=== PATIENT | female | born 1955 | race African-American/Black ===

== ENCOUNTER 2018-11-19 09:13 | Day surgery (SDC) | payer BC, MEDICARE, OTHER ==
[2018-11-19] MEDS ORDERED: ONDANSETRON HCL INJ/PF 4 MG/2 ML SDV IV ONE (10:21)
[2018-11-19] MEDS ORDERED: MORPHINE SULFATE 10 MG/ML INJ IV ONE ×2 (10:21→15:20)
--- NOTE | 2018-11-19 10:23 | ER Document Report ---
ED Medical Screen (RME) - General Chief Complaint: Abdominal Pain Stated Complaint: ABDOMINAL PAIN Time Seen by Provider: 11/19/18 10:14 Mode of Arrival: Ambulatory Information source: Patient TRAVEL OUTSIDE OF THE [place] IN LAST 30 DAYS: No - HPI Patient complains to provider of: ABDO PAIN, MASS Notes: 11/19/18 10:22 Patient here with complaints of abdominal pain vomiting and mass near her umbilicus. This started about an hour ago. No fever. Exam No distress, nontoxic. Patient with hernia noted to the right side of her um bilicus. I attempted gentle reduction in triage, the patient did not tolerate this due to pain. Was not able to successfully reduce this in triage. Plan CBC, CMP, lipase, lactic acid, saline lock, CT abdomen pelvis with IV contrast. Patient will require reduction of this hernia. An initial examination was made on the patient as part of the triage process, and it was determined a more comprehensive evaluation was necessary. Initial labs were ordered and patient was transferred to another provider in the ED who assumed care and finished evaluation and plan. - Related Data Allergies/Adverse Reactions: No Known Allergies Allergy (Unverified 11/19/18 09:15) Past Medical History Renal/ Medical History: Denies: Hx Peritoneal Dialysis Past Surgical History: Reports: Hx Appendectomy Physical Exam - Vital signs Vitals: Temp Pulse Resp BP Pulse Ox 97.4 F 55 L 16 153/77 H 98 11/19/18 09:28 11/19/18 09:28 11/19/18 09:28 11/19/18 09:28 11/19/18 09:28 Course - Vital Signs Vital signs: Temp Pulse Resp BP Pulse Ox 97.4 F 55 L 16 153/77 H 98 11/19/18 09:28 11/19/18 09:28 11/19/18 09:28 11/19/18 09:28 11/19/18 09:28
[2018-11-19] MEDS ORDERED: ROCURONIUM BROMIDE INJ 50 MG/5 ML VIAL IV ONE (10:48)
[2018-11-19] MEDS ORDERED: SUCCINYLCHOLINE CHLORIDE INJ 200 MG/10 ML VIAL ONE (10:48)
[2018-11-19 11:29] LABS: ABSOLUTE EOSINOPHILS # (AUTO) 0.2 10^3/uL (0.0-0.6); ABSOLUTE MONOCYTES (AUTO) 0.5 10^3/uL (0.1-1.4); ABSOLUTE NEUT (AUTO) 5.2 10^3/uL (1.7-8.2); BASOPHILS % (AUTO) 0.3 % (0-2); EOSINOPHILS % (AUTO) 2.4 % (0-6); HEMATOCRIT 37.2 % (36.0-47.0); HEMOGLOBIN 12.3 g/dL (12.0-15.5); MEAN CORPUSCULAR HEMOGLOBIN 30.7 pg (27.0-33.4); MEAN CORPUSCULAR HGB CONC 33.1 g/dL (32.0-36.0); MEAN CORPUSCULAR VOLUME 93 fl (80-97); MONOCYTES % (AUTO) 6.8 % (3-13); RED BLOOD COUNT 4.01 10^6/uL (3.72-5.28); RED CELL DISTRIBUTION WIDTH 14.5 % (11.5-14.0); SEGMENTED NEUTROPHILS % (AUTO) 65.5 % (42-78); TOTAL CELLS COUNTED % (AUTO) 100 %
[2018-11-19 11:37] LABS: ALANINE AMINOTRANSFERASE 23 U/L (9-52); ALBUMIN 4.1 g/dL (3.5-5.0); ALKALINE PHOSPHATASE 59 U/L (38-126); ANION GAP 11 (5-19); ASPARTATE AMINO TRANSFERASE 26 U/L (14-36); BILIRUBIN,DIRECT 0.3 mg/dL (0.0-0.4); BILIRUBIN,TOTAL 0.9 mg/dL (0.2-1.3); BLOOD UREA NITROGEN 17 mg/dL (7-20); CALCIUM 9.7 mg/dL (8.4-10.2); CARBON DIOXIDE 28 mmol/L (22-30); CHLORIDE 104 mmol/L (98-107); GLUCOSE 94 mg/dL (75-110); LIPASE 70.8 U/L (23-300); POTASSIUM 4.5 mmol/L (3.6-5.0); SODIUM 142.7 mmol/L (137-145); TOTAL PROTEIN 8.2 g/dL (6.3-8.2)
--- NOTE | 2018-11-19 11:41 | ER Document Report ---
ED General - General Chief Complaint: Abdominal Pain Stated Complaint: ABDOMINAL PAIN Time Seen by Provider: 11/19/18 10:14 Mode of Arrival: Ambulatory TRAVEL OUTSIDE OF THE [place] IN LAST 30 DAYS: No - HPI Notes: Patient is a 63-year-old female no significant past medical history who presents to the emergency department complaining of a worsening bump and pain to her abdomen near her umbilicus. Patient states that she has had a small bump there for a long time, but this morning it is significantly become swollen and painful. Her last bowel movement was this morning as well. She is otherwise able to eat and drink, but did have 3 episodes of emesis this morning. She stil l urinating normally. Denies drug allergies. No other concerns or complaints. Denies any headache, fever, neck pain, URI, sore throat, chest pain, palpitations, syncope, cough, shortness of breath, wheeze, dyspnea, diarrhea, urinary retention, dysuria, hematuria, back pain, or rash. - Related Data Allergies/Adverse Reactions: No Known Allergies Allergy (Verified 11/19/18 10:23) Past Medical History - General Information source: Patient - Social History Smoking Status: Never Smoker Family History: Reviewed & Not Pertinent Patient has suicidal ideation: No Patient has homicidal ideation: No Renal/ Medical History: Denies: Hx Peritoneal Dialysis Past Surgical History: Reports: Hx Appendectomy Review of Systems - Review of Systems -: Yes All other systems reviewed and negative Physical Exam - Vital signs Vitals: Temp Pulse Resp BP Pulse Ox 97.4 F 55 L 16 153/77 H 98 11/19/18 09:28 11/19/18 09:28 11/19/18 09:28 11/19/18 09:28 11/19/18 09:28 - Notes Notes: PHYSICAL EXAMINATION: GENERAL: Well-appearing, well-nourished and in no acute distress. LUNGS: Breath sounds clear to auscultation bilaterally and equal. No wheezes rales or rhonchi. HEART: Regular rate and rhythm without murmurs, rubs, gallops. ABDOMEN: Generally soft. + umbilical hernia noted that is firm and tender to palp. I was unable to reduce on my attempt at this time. No guarding, no rebound. Normal bowel sounds present. No CVA tenderness bilaterally. Musculoskeletal: FROM to passive/active. Strength 5+/5. Extremities: No cyanosis, clubbing, or edema b/l. Peripheral pulses 2+. Capillary refill less than 3 seconds. NEUROLOGICAL: Normal speech, normal gait. PSYCH: Normal mood, normal affect. SKIN: Warm, Dry, normal turgor, no rashes or lesions noted. Course - Re-evaluation Re-evalutation: 11/19/18 12:00 Dr. Kwon was consulted who eval'd the patient. He would like her to remain NPO and perform CT abd/pelv with IV/Oral. 11/19/18 15:[address] shows umbilical hernia w/o obvious strangulation at this time. I called Dr. Kwon but he will be in surgery for the next 45 mins approx. Reviewed case with patient and that Dr. Kwon may want to take her to surgery to reduce the hernia. 11/19/18 16:35 I was able to speak with Dr. Kwon who will eval the patient for incarcerated hernia. 11/19/18 16:42 Dr. Kwon has accepted pt for admit and will take her to the OR for reduction. - Vital Signs Vital signs: Temp Pulse Resp BP Pulse Ox 97.4 F 55 L 16 153/77 H 98 11/19/18 09:28 11/19/18 09:28 11/19/18 09:28 11/19/18 09:28 11/19/18 09:28 - Laboratory Result Diagrams: 11/19/18 10:40 11/19/18 10:40 Laboratory results interpreted by me: 11/19/18 11/19/18 10:40 10:40 RDW 14.5 H Creatinine 0.40 L Discharge - Discharge Clinical Impression: Incarcerated umbilical hernia Condition: Stable Disposition: ADMITTED INPATIENT Admitting Provider: Surgicalist - Dr. Kwon Unit Admitted: Surgical Floor
[2018-11-19 11:46] LABS: PLATELET COUNT 195 10^3/uL (150-450)
[2018-11-19] MEDS ORDERED: METOCLOPRAMIDE HCL INJ/PF 10 MG/2 ML SDV IV ONE (13:42)
--- NOTE | 2018-11-19 15:02 | RADIOLOGY REPORT (SQ) ---
EXAM DESCRIPTION: CT ABD/PELVIS WITH IV ORAL COMPLETED DATE/TIME: 11/19/2018 2:43 pm REASON FOR STUDY: umbilical hernia, pain COMPARISON: None. TECHNIQUE: CT scan of the abdomen and pelvis performed using helical scanning technique with dynamic intravenous contrast injection. No oral contrast. Images reviewed with lung, soft tissue, and bone windows. Reconstructed coronal and sagittal MPR images reviewed. Delayed images for evaluation of the urinary system also acquired. All images stored on PACS. All CT scanners at this facility use dose modulation, iterative reconstruction, and/or weight based d osing when appropriate to reduce radiation dose to as low as reasonably achievable (ALARA). [facility]: Dose Right [facility]: CareDose [facility]: Dose Right [facility]: Teradose 4D [facility]: Golden Reviews CONTRAST TYPE AND DOSE: contrast/concentration: Isovue 350.00 mg/ml; Total Contrast Delivered: 100.0 ml; Total Saline Delivered: 72.0 ml RENAL FUNCTION: BUN 17 creatinine 0.4 RADIATION DOSE: CT Rad equipment meets quality standard of care and radiation dose reduction techniq ues were employed. CTDIvol: 20.7 - 21.1 mGy. DLP: 2124 mGy-cm.. LIMITATIONS: None. FINDINGS: LOWER CHEST: No significant findings. No nodules or infiltrates. LIVER: Normal size. No masses. No dilated ducts. SPLEEN: Normal size. No focal lesions. PANCREAS: No masses. No significant calcifications. No adjacent inflammation or peripancreatic fluid collections. Pancreatic duct not dilated. GALLBLADDER: No identified stones by CT criteria. No inflammatory changes to suggest cholecystitis. ADRENAL GLANDS: No significant masses or asymmetry. RIGHT KIDNEY AND URETER: No solid masses. No significant calcifications. No hydronephrosis or hyd roureter. LEFT KIDNEY AND URETER: No solid masses. No significant calcifications. No hydronephrosis or hydr oureter. AORTA AND VESSELS: No aneurysm. No dissection. There is an IVC filter. RETROPERITONEUM: No retroperitoneal adenopathy, hemorrhage or masses. BOWEL AND PERITONEAL CAVITY: No masses or inflammatory changes. No free fluid or peritoneal masses. There is no evidence of bowel obstruction. See abdominal wall, below. APPENDIX: Surgically absent. PELVIS: The uterus is enlarged and quite heterogeneous. There are calcified and noncalcified fibroid s. ABDOMINAL WALL: There is a 3 cm wide umbilical hernia that contains a loop of bowel that is fluid-zita led but otherwise unremarkable. There is also omental fat within the hernia. BONES: No acute or significant finding. OTHER: No other significant finding. IMPRESSION: 1. Umbilical hernia contains a loop of bowel. There is no evidence of bowel obstructio n. 2. Fibroid uterus. TECHNICAL DOCUMENTATION: JOB ID: [id number] Quality ID # [id number]: Final reports with documentation of one or more dose reduction techniques (e.g., Au tomated exposure control, adjustment of the mA and/or kV according to patient size, use of iterative reconstruction technique) 2010 [employer]- All Rights Reserved Reading location - IP/workstation name: [email or web address]
[2018-11-19] MEDS ORDERED: NORMAL SALINE 1000 ML 1,000 ML IV ONE (15:20)
--- NOTE | 2018-11-19 17:24 | HISTORY AND PHYSICAL E ---
History and Physical NAME: LISA LEWIS : 1955 AGE: 63Y ADMITTED: 11/19/2018 ROOM: ED13 CHIEF COMPLAINT: Abdominal pains. HISTORY OF PRESENT ILLNESS: This is a 63-year-old female who had a previous laparoscopic tubal ligation done 34 years ago. Since her tubal ligation, she noted a small lump, peanut-sized, along the umbilical area. This morning, after she had a bowel movement, she developed severe umbilical pains with more prominence of the hernia and also associated with nausea and vomiting. She went to the ED, where several attempts to reduce the hernia were done which were unsuccessful. She had a CT scan of the abdomen, which showed incarcerated umbilical hernia with omentum and bowel through the hernia. However, there is no evidence of obstruction. The patient is having a considerable amount of pain and that is why it is needed to reduce the hernia and also avoid any strangulation. PAST HISTORY: History of deep venous thrombosis in 2013 on the right leg. She also had a PE. She had a vena cava filter placed. She denies any fever, chills, or dysuria. REVIEW OF SYSTEMS: As in history of present illness. Complaining of severe umbilical pains with a tender lump. Positive vomiting. Had some constipation. No diarrhea. No chest pains, cough, or shortness of breath. Denies fever or chills. FAMILY HISTORY: Positive for diabetes on father's side. SOCIAL HISTORY: Denies smoking. Drinks occasionally. No recreational drug use. ALLERGIES: None known. PHYSICAL EXAMINATION: GENERAL: Well-developed, slightly overweight 63-year-old female, alert and oriented, complaining of umbilical pains. NECK: Supple. No thyromegaly. LUNGS: Clear. HEART: Regular sinus rhythm. ABDOMEN: Soft with very tender prominent herniation of the right paraumbilical area. She has a scar from previous tubal ligation in the lower umbilical area. This is markedly tender and unable to be reduced. Roughly, golf ball size. EXTREMITIES: No edema, no pains, no swelling. IMPRESSION: INCARCERATED UMBILICAL HERNIA. PLAN: Open reduction of incarcerated umbilical hernia with possible use of mesh. Start prophylactic antibiotics. DICTATING PHYSICIAN: MANNY IBARRA M.D. [id number] PHY#: [id number] ID: [id number] JOB#: [id number] ACCT: [id number] cc:MANNY IBARRA M.D. >
[2018-11-19] MEDS ORDERED: CEFAZOLIN INJ 1 GM VIAL ONE (17:29)
[2018-11-19] MEDS ORDERED: DEXAMETHASONE SOD PHOSPHATE INJ 4 MG/1 ML VIAL ONE (17:34)
[2018-11-19] MEDS ORDERED: ONDANSETRON HCL INJ/PF 4 MG/2 ML SDV ONE (17:34)
[2018-11-19] MEDS ORDERED: MIDAZOLAM 2 MG/2 ML INJ ONE (17:34)
[2018-11-19] MEDS ORDERED: HYDROMORPHONE HCL INJ/PF 2 MG/ML AMPULE ONE (17:34)
[2018-11-19] MEDS ORDERED: PROPOFOL INJ 200 MG/20 ML VIAL IV ONE (17:34)
[2018-11-19] MEDS ORDERED: KETOROLAC TROMETHAMINE 60 MG/2 ML SDV ONE (17:34)
[2018-11-19] MEDS ORDERED: MEPERIDINE HCL/PF INJ 25 MG/1 ML DISP.SYRIN IV PRN (18:13)
[2018-11-19] MEDS ORDERED: FENTANYL CITRATE INJ/PF 100 MCG/2 ML AMPUL IV PRN ×3 (18:13)
[2018-11-19] MEDS ORDERED: OXYCODONE-ACETAMINOPHEN 5-325 MG TABLET PO PRN ×2 (18:13)
[2018-11-19] MEDS ORDERED: DIPHENHYDRAMINE HCL 50 MG/ML VIAL IV PRN (18:13)
[2018-11-19] MEDS ORDERED: MORPHINE SULFATE 10 MG/ML INJ IV PRN ×2 (18:13→20:02)
[2018-11-19] MEDS ORDERED: ONDANSETRON HCL INJ/PF 4 MG/2 ML SDV IV PRN ×2 (18:13→20:02)
[2018-11-19] MEDS ORDERED: NORMAL SALINE 1000 ML 1,000 ML IV PRN (20:04)
--- NOTE | 2018-11-19 20:24 | OPERATIVE REPORT E ---
Operative Report NAME: LISA LEWIS : 1955 AGE: 63Y DATE OF SURGERY: 11/19/2018 ROOM: ED13 PREOPERATIVE DIAGNOSIS: INCARCERATED UMBILICAL HERNIA. POSTOPERATIVE DIAGNOSIS: INCARCERATED UMBILICAL HERNIA. OPERATION: Reduction and repair of incarcerated umbilical hernia with the use of mesh. SURGEON: MANNY IBARRA M.D. ANESTHESIA: General. INDICATION: This is a 63-year-old female who had a previous tubal ligation, laparoscopic, about 34 years ago. She noted a peanut lump around the umbilicus postop since surgery. This morning after a bowel movement noted enlargement of the hernia site at the umbilicus and associated with nausea and vomiting. She went to the ED where the hernia was unable to be reduced. She had a CT scan of the abdomen, it showed incarcerated bowel in the umbilical hernia but no obvious obstruction. The patient complaining of severe pains around the umbilical hernia. DESCRIPTION OF PROCEDURE: After adequate general anesthesia, the patient was placed in the supine position and the abdomen prepped and draped in the usual sterile fashion. Appropriate timeout was then called. Next, a transverse incision made just below the umbilicus around the hernia site, about 8 cm long. The incision deep into the subcutaneous area. The hernia sac was then identified and opened. There was a lot of omentum and hernia defect was subsequently palpated through the fascia, which roughly measured about 1.5 cm in diameter. The fascial defect was then enlarged laterally to the right with the use of cautery. This allowed to push down the bowel, which appears to be viable. However, she has a large omentum that was quite difficult to push into the abdominal cavity. Because of this the omentum was then divided with the use of serial clamping and dividing the omentum between the clamp with a Metzenbaum scissors. Next, all the omental stump I then ligated with 0-Vicryl ties. This allowed pushing down the full omentum through the abdominal cavity, through the small defect. The defect roughly measured about 2.5 cm in diameter. I decided to place a 6 cm mesh for better repair. The mesh was then sutured to the four corners using U-stitch of 0-Prolene. All the sutures were then tied over the fascia snug. The mesh was palpated and noted to have a good patch underneath the peritoneum. The 2 limbs of the mesh were then cut, about 1 cm long and then sutured to the subcu using 0-Vicryl. The subcu was then partially closed using [id number] suture using 2-0 Vicryl. The skin incisions were then closed with skin abhishek. A sterile dressing was placed over the operative site. Needle, instrument, and sponge count were all correct and estimated blood loss about 30 mL. DICTATING PHYSICIAN: MANNY IBARRA M.D. [id number] PHY#: [id number] ID: [id number] JOB#: [id number] ACCT: [id number] cc:MANNY IBARRA M.D. >
[2018-11-19] MEDS: CEFAZOLIN SODIUM 2 GM in DEXTROSE 5%-WATER 100 ML IV SCH (22:14)
[2018-11-19] MEDS: ENOXAPARIN SODIUM INJ 40 MG/0.4 ML DISP.SYRIN SUBCUT SCH (23:30)
[2018-11-20] MEDS: CEFAZOLIN SODIUM 2 GM in DEXTROSE 5%-WATER 100 ML IV SCH ×2 (05:17→13:24)
[2018-11-20] MEDS: OXYCODONE-ACETAMINOPHEN 5-325 MG TABLET PO PRN ×3 (05:22→21:49)
--- NOTE | 2018-11-20 10:47 | PDOC PROGRESS REPORT ---
Subjective Progress Note for:: 11/20/18 Subjective:: Incisional pains Reason For Visit: INCARCERATED UMBILICAL HERNIA Physical Exam Vital Signs: Temp Pulse Resp BP Pulse Ox 97.7 F 66 20 114/56 L 96 11/20/18 08:25 11/20/18 08:25 11/20/18 08:25 11/20/18 08:25 11/20/18 08:25 Intake & Output 11/19/18 11/20/18 11/21/18 06:59 06:59 06:59 Intake Total 2740 Output Total 1075 Balance 1665 Weight 96 kg Exam: Dressings removed. Has blood on the dressing. Wound looks good. Dry dressing re- applied. Results Laboratory Results: 11/19/18 10:40 11/19/18 10:40 11/19/18 11/19/18 11/19/18 10:40 10:40 10:40 WBC 8.0 RBC 4.01 Hgb 12.3 Hct 37.2 MCV 93 MCH 30.7 MCHC 33.1 RDW 14.5 H Plt Count 195 Seg Neutrophils % 65.5 Lymphocytes % 25.0 Monocytes % 6.8 Eosinophils % 2.4 Basophils % 0.3 Absolute Neutrophils 5.2 Absolute Lymphocytes 2.0 Absolute Monocytes 0.5 Absolute Eosinophils 0.2 Absolute Basophils 0.0 Sodium 142.7 Potassium 4.5 Chloride 104 Carbon Dioxide 28 Anion Gap 11 BUN 17 Creatinine 0.40 L Est GFR ( Amer) > 60 Est GFR (Non-Af Amer) > 60 Glucose 94 Lactic Acid 1.8 Calcium 9.7 Total Bilirubin 0.9 AST 26 ALT 23 Alkaline Phosphatase 59 Total Protein 8.2 Albumin 4.1 Lipase 70.8 Impressions: Abdomen/Pelvis CT 11/19/18 00:00 IMPRESSION: 1. Umbilical hernia contains a loop of bowel. There is no evidence of bowel obstruction. 2. Fibroid uterus. Assessment & Plan - Diagnosis (1) Incarcerated umbilical hernia Is this a current diagnosis for this admission?: Yes - Time Time Spent with patient: 15-24 minutes - Inpatient Certification Medical Necessity: Need for IV Antibiotics - Plan Summary Plan Summary: Will re-evaluate after last dose of prophylactic antibiotics today. Possible discharge Reg Diet
[2018-11-20] MEDS: ENOXAPARIN SODIUM INJ 40 MG/0.4 ML DISP.SYRIN SUBCUT SCH (21:49)
[2018-11-21] MEDS: OXYCODONE-ACETAMINOPHEN 5-325 MG TABLET PO PRN (04:07)
[2018-11-21 09:12] VITALS: BP 132/72
== END 2018-11-21 09:58 | disposition home or self-care (01) ==
LOC: ER 09:13 → INTOOBSV 16:50 → UNDOADMOB 16:50 → EH 16:50 → ASU 1 17:30 → 2N 20:30 → EH 20:30 → 2N 20:35 → ASU 1 11-21 09:58 → UNDODISOB 11-21 09:58
PROVIDERS: ATTEND Surgery
DX: K42.0 Umbilical hernia with obstruction, without gangrene (principal); D25.9 Leiomyoma of uterus, unspecified; E66.3 Overweight; Z86.711 Personal history of pulmonary embolism; Z86.718 Personal history of other venous thrombosis and embolism; Z68.41 Body mass index [BMI] 40.0-44.9, adult
CPT/HCPCS: 96376; 99284; 96361; 96374; 96375; 36415; 83605; 83690; 85025; 80053; 74177; 00830; 49587; C1781; J2250; J0690 ×2; J3490; J1100; J1885; J2765; J2270; J1650; A9270 ×2; J1170; J0330; J2405; J7060 ×2; J7030; J2704; 830

== ENCOUNTER 2019-04-08 10:00 | Day surgery (SDC) | payer MEDICARE ==
[2019-04-07 12:53] LABS: APPEARANCE,URINE SLIGHTLY-CLOUDY; BILIRUBIN,URINE NEGATIVE (NEGATIVE); COLOR,URINE YELLOW; GLUCOSE, URINE NEGATIVE (NEGATIVE); KETONES,URINE NEGATIVE (NEGATIVE); LEUKOCYTE ESTERASE,URINE TRACE (NEGATIVE); NITRITE,URINE NEGATIVE (NEGATIVE); PROTEIN,URINE 30 mg/dL (NEGATIVE); URINE SPECIFIC GRAVITY 1.016; UROBILINOGEN,URINE NEGATIVE mg/dL (<2.0)
[2019-04-07 12:59] LABS: HEMATOCRIT 32.1 % (36.0-47.0); HEMOGLOBIN 10.7 g/dL (12.0-15.5); MEAN CORPUSCULAR HEMOGLOBIN 30.9 pg (27.0-33.4); MEAN CORPUSCULAR HGB CONC 33.3 g/dL (32.0-36.0); MEAN CORPUSCULAR VOLUME 93 fl (80-97); PLATELET COUNT 250 10^3/uL (150-450); RED BLOOD COUNT 3.46 10^6/uL (3.72-5.28); RED CELL DISTRIBUTION WIDTH 14.5 % (11.5-14.0); WHITE BLOOD COUNT 6.2 10^3/uL (4.0-10.5)
[~2019-04-08 10:00] MED LIST: LACTATED RINGERS 1000 ML IV PRN
[2019-04-08] MEDS ORDERED: MIDAZOLAM 2 MG/2 ML INJ ONE (12:10)
[2019-04-08] MEDS ORDERED: ONDANSETRON HCL INJ/PF 4 MG/2 ML SDV ONE (12:10)
[2019-04-08] MEDS ORDERED: FENTANYL CITRATE INJ/PF 100 MCG/2 ML AMPUL ONE ×2 (12:10→12:57)
[2019-04-08] MEDS ORDERED: PROPOFOL INJ 200 MG/20 ML VIAL IV ONE (12:11)
[2019-04-08] MEDS ORDERED: FENTANYL CITRATE INJ/PF 100 MCG/2 ML AMPUL IV PRN ×2 (12:31)
[2019-04-08] MEDS ORDERED: DIPHENHYDRAMINE HCL 50 MG/ML VIAL IV PRN (12:31)
[2019-04-08] MEDS ORDERED: PROMETHAZINE HCL INJ 25 MG/1 ML VIAL IV PRN (12:31)
[2019-04-08] MEDS ORDERED: MEPERIDINE HCL/PF INJ 25 MG/1 ML DISP.SYRIN IV PRN (12:31)
[2019-04-08] MEDS ORDERED: KETOROLAC TROMETHAMINE INJ/PF 30 MG/1 ML SDV IV PRN (12:40)
[2019-04-08] MEDS ORDERED: IBUPROFEN 800 MG TABLET PO PRN (12:40)
[2019-04-08] MEDS ORDERED: OXYCODONE-ACETAMINOPHEN 5-325 MG TABLET PO PRN ×2 (12:40)
[2019-04-08] MEDS ORDERED: RINGERS SOLUTION,LACTATED 1,000 ML IV PRN (12:40)
--- NOTE | 2019-04-08 12:43 | Operative Report ---
Operative Report DATE OF SURGERY: 04/08/19 PREOPERATIVE DIAGNOSIS: Patient desires D&C for postmenopausal bleeding POSTOPERATIVE DIAGNOSIS: Same OPERATION: Fractional D&C SURGEON: DESEAN PARSON ANESTHESIA: LMAC TISSUE REMOVED OR ALTERED: Cervical and uterine contents COMPLICATIONS: None ESTIMATED BLOOD LOSS: 5 cc INTRAOPERATIVE FINDINGS: Uterus sounded to 10 cm PROCEDURE: Patient was taken the OR and placed in supine position. General anesthesia was induced. She is placed in a dorsolithotomy position using Alvaro stirrups. Her perineum vagina were prepared and draped in sterile fashion. She had just voided prior to the procedure and did not need catheterization. Speculum was placed in the anterior lip cervix grasped with tenaculum. Uterus sounded to 10 cm. Endocervical curettings were obtained. A cervical dilatation was performed and endometrial curettings were obtained. There is a large return of tissue. All tissue was sent for specimen. At this point I did not do a hysteroscopy as I was concerned with a uterine malignancy and did not want to flush saline through the fallopian tubes. All instruments were removed she is placed back in supine position taken recovery room stable condition.
--- NOTE | 2019-04-08 12:44 | Discharge Summary ---
Discharge Summary (SDC) - Discharge Final Diagnosis: Postmenopausal bleeding Date of Surgery: 04/08/19 Discharge Date: 04/08/19 Condition: Good Forms: ASU Anesthesia D/C Instruction, Discharge POC-Surgical Service Referrals: DESEAN PARSON MD [ACTIVE STAFF] - Discharge Diet: Regular Discharge Activity: Balance Activity w/Rest, Pelvic Rest Report the Following to Your Physician Immediately: Fever over 101 Degrees
[2019-04-08] MEDS ORDERED: IBUPROFEN 800 MG TABLET ONE (12:57)
[2019-04-08] MEDS ORDERED: KETOROLAC TROMETHAMINE INJ/PF 30 MG/1 ML SDV ONE (12:58)
[2019-04-08 15:45] VITALS: BP 140/74
--- NOTE | 2019-04-08 17:45 | EKG REPORT ---
SEVERITY:- ABNORMAL ECG - SINUS BRADYCARDIA 58 LVH BY VOLTAGE ABNORMAL T, CONSIDER ISCHEMIA, DIFFUSE LEADS : Confirmed by: Jerardo Rahman MD 08-Apr-2019 17:44:20
== END 2019-04-08 15:26 | disposition home or self-care (01) ==
LOC: OROUT 10:00
PROVIDERS: ATTEND Obstetrics & Gynecology
DX: C54.1 Malignant neoplasm of endometrium (principal); N95.0 Postmenopausal bleeding; E66.9 Obesity, unspecified; Z79.899 Other long term (current) drug therapy; Z87.891 Personal history of nicotine dependence; Z79.82 Long term (current) use of aspirin; Z68.42 Body mass index [BMI] 45.0-49.9, adult
CPT/HCPCS: 58120; 36415; 85027; 81001; 88305 ×2; 93005; 93010; J2250; A9270; J3010; J1885; J2405; J2704; 952

== ENCOUNTER 2019-05-21 16:45 | Inpatient (IN) | payer MEDICARE, MEDICAID ==
--- NOTE | 2019-05-21 17:52 | ER Document Report ---
ED Medical Screen (RME) - General Chief Complaint: Rib Pain Stated Complaint: LEFT RIBCAGE PAIN, SHORT OF BREATH Time Seen by Provider: 05/21/19 17:47 Primary Care Provider: ZENA HERNANDEZ MD [Primary Care Provider] - Follow up as needed TRAVEL OUTSIDE OF THE [place] IN LAST 30 DAYS: No - HPI Notes: 05/21/19 17:53 54-year-old female to the emergency department with complaints of left-sided rib pain that gets worse with big deep breath and shortness of breath that began in the past 2 days. She states that she recently had a hysterectomy about 1 week ago and has been well until this started. She states that movement and big deep breath hurt her. She states that she has been using incentive spirometer at home since she had her surgery. She states that she was able to get the ball all the way up to the top now she cannot move it very well at all. She denies any fevers or chills. She denies any cough. She is currently on Lovenox injection twice a day to prevent blood clot and she has been faithful on that. I performed a brief medical screening exam on patient and determined she needs further management and evaluation by main side ER provider. I have placed orders and imaging studies to explain patient's care. - Related Data Allergies/Adverse Reactions: No Known Allergies Allergy (Verified 05/21/19 17:48) Past Medical History - Social History Chew tobacco use (# tins/day): No Frequency of alcohol use: None - Past Medical History Cardiac Medical History: Denies: Hx Coronary Artery Disease, Hx Heart Attack, Hx Hypertension Pulmonary Medical History: Denies: Hx Asthma, Hx Bronchitis, Hx COPD, Hx Pneumonia Neurological Medical History: Denies: Hx Seizures Renal/ Medical History: Denies: Hx Peritoneal Dialysis Musculoskeltal Medical History: Reports Hx Arthritis Past Surgical History: Reports: Hx Appendectomy - Immunizations Hx Diphtheria, Pertussis, Tetanus Vaccination: Yes Physical Exam - Vital signs Vitals: Temp Pulse Resp BP Pulse Ox 98.2 F 95 11 L 123/68 96 05/21/19 17:16 05/21/19 17:16 05/21/19 17:16 05/21/19 17:16 05/21/19 17:16 Course - Vital Signs Vital signs: Temp Pulse Resp BP Pulse Ox 98.2 F 95 11 L 123/68 96 05/21/19 17:16 05/21/19 17:16 05/21/19 17:16 05/21/19 17:16 05/21/19 17:16 Doctor's Discharge - Discharge Referrals: ZENA HERNANDEZ MD [Primary Care Provider] - Follow up as needed
--- NOTE | 2019-05-21 18:25 | RADIOLOGY REPORT (SQ) ---
EXAM DESCRIPTION: CHEST 2 VIEWS COMPLETED DATE/TIME: 05/21/2019 6:09 pm REASON FOR STUDY: rib pain COMPARISON: None. EXAM PARAMETERS: NUMBER OF VIEWS: two views TECHNIQUE: Digital Frontal and Lateral radiographic views of the chest acquired. RADIATION DOSE: NA LIMITATIONS: none FINDINGS: LUNGS AND PLEURA: Chronic interstitial changes. MEDIASTINUM AND HILAR STRUCTURES: No masses or contour abnormalities. HEART AND VASCULAR STRUCTURES: Heart normal size. No evidence for failure. BONES: No acute findings. HARDWARE: None in the chest. OTHER: No other significant finding. IMPRESSION: Chronic interstitial changes with no acute cardiopulmonary findings. TECHNICAL DOCUMENTATION: JOB ID: [id number] [employer]- All Rights Reserved Reading location - IP/workstation name: [email or web address]
[2019-05-21 19:20] LABS: ABSOLUTE BASOPHILS # (AUTO) 0.1 10^3/uL (0.0-0.2); ABSOLUTE EOSINOPHILS # (AUTO) 0.4 10^3/uL (0.0-0.6); ABSOLUTE LYMPHOCYTES (AUTO) 2.1 10^3/uL (0.5-4.7); ABSOLUTE MONOCYTES (AUTO) 1.1 10^3/uL (0.1-1.4); ABSOLUTE NEUT (AUTO) 6.1 10^3/uL (1.7-8.2); BASOPHILS % (AUTO) 0.8 % (0-2); EOSINOPHILS % (AUTO) 3.8 % (0-6); HEMATOCRIT 28.8 % (36.0-47.0); HEMOGLOBIN 9.7 g/dL (12.0-15.5); LYMPHOCYTES % (AUTO) 21.8 % (13-45); MEAN CORPUSCULAR HEMOGLOBIN 31.2 pg (27.0-33.4); MEAN CORPUSCULAR HGB CONC 33.7 g/dL (32.0-36.0); MEAN CORPUSCULAR VOLUME 93 fl (80-97); MONOCYTES % (AUTO) 11.5 % (3-13); PLATELET COUNT 496 10^3/uL (150-450); RED BLOOD COUNT 3.11 10^6/uL (3.72-5.28); RED CELL DISTRIBUTION WIDTH 14.9 % (11.5-14.0); SEGMENTED NEUTROPHILS % (AUTO) 62.1 % (42-78); TOTAL CELLS COUNTED % (AUTO) 100 %; WHITE BLOOD COUNT 9.9 10^3/uL (4.0-10.5)
[2019-05-21 19:39] LABS: ALBUMIN 3.8 g/dL (3.5-5.0); ALKALINE PHOSPHATASE 109 U/L (38-126); ANION GAP 12 (5-19); ASPARTATE AMINO TRANSFERASE 33 U/L (14-36); BILIRUBIN,DIRECT 0.2 mg/dL (0.0-0.4); BILIRUBIN,TOTAL 0.8 mg/dL (0.2-1.3); BLOOD UREA NITROGEN 9 mg/dL (7-20); CALCIUM 9.5 mg/dL (8.4-10.2); CARBON DIOXIDE 27 mmol/L (22-30); CHLORIDE 103 mmol/L (98-107); GLUCOSE 97 mg/dL (75-110); POTASSIUM 3.9 mmol/L (3.6-5.0); TOTAL PROTEIN 7.8 g/dL (6.3-8.2)
--- NOTE | 2019-05-21 22:43 | RADIOLOGY REPORT (SQ) ---
EXAM DESCRIPTION: CT CHEST ANGIOGRAPHY WITHOUT THEN WITH IV CONTRAST COMPLETED DATE/TME: 05/21/2019 20:49 CLINICAL HISTORY: 64 years Female, recent surgery, h/o pe, c/o left pleuritic pain Comparison: CR, same day CT, abdomen/pelvis, 11/19/18.. Technique: IV contrast. Coronal and sagittal reformat. 3d reconstruction. This exam was performed according to our departmental dose-optimization program, which includes automated exposure control, adjustment of the mA and/or kV according to patient size and/or use of iterative reconstruction technique.[facility]: Dose Right [facility]: CareDose [facility]: Dose Right [facility]: Teradose 4D [facility]: Qinti LIMITATIONS: None Findings: Moderate pulmonary arterial emboli involving occlusive segmental branches of bilateral basal lower lobes. No demonstrated right ventricular strain. Small consolidative streaky opacity of the left lower lobe and right middle lobe. IVC filter. Degenerative disc disease. Inferior neck, axillae, mediastinum, airway, lymphatics, heart, vasculature, upper abdomen, and musculoskeleton appear otherwise unremarkable. Impression: 1. Moderate pulmonary arterial emboli bilateral lower lobes, indeterminate age. 2. Small bilateral atelectasis, pneumonia, and/or infarct. 3. IVC filter.
[2019-05-21] MEDS ORDERED: HYDROMORPHONE HCL INJ/PF 2 MG/ML AMPULE IV ONE (22:54)
[2019-05-21] MEDS ORDERED: ONDANSETRON HCL INJ/PF 4 MG/2 ML SDV IV ONE (22:54)
[2019-05-21] MEDS ORDERED: HEPARIN SOD (PORCINE) 1,000 UNIT/ML 10 ML VIAL IV ONE (22:56)
[2019-05-21] MEDS ORDERED: HEPARIN SODIUM,PORCINE/D5W 25,000 UNIT/250 ML RTUINJ IV PRN (22:56)
--- NOTE | 2019-05-21 23:04 | ER Document Report ---
Entered by RADHA SALES SCRIBE 05/21/192048 Acting as scribe for:OREN FLOOD IV, MD ED Respiratory Problem - General Chief Complaint: Rib Pain Stated Complaint: LEFT RIBCAGE PAIN, SHORT OF BREATH Time Seen by Provider: 05/21/19 17:47 Mode of Arrival: Ambulatory Information source: Patient Notes: This 64-year-old female patient presents to the emergency department today with complaints of left-sided chest pain with associated shortness of breath. Patient had a hysterectomy x1 week ago and is currently on 0.4 mg of subcutaneous Lovenox daily which she states she has not missed. Patient has a history of right-sided DVT with right-sided pulmonary embolism in 2013 and was on Coumadin until 2014. Pertinent PMHx/PSHx: PE, DVT, on Lovenox. Recent hysterectomy. - additional PMHx/PSHx not pertinent to this visit as recorded. TRAVEL OUTSIDE OF THE [place] IN LAST 30 DAYS: No - Related Data Allergies/Adverse Reactions: No Known Allergies Allergy (Verified 05/21/19 17:48) Past Medical History - General Information source: Patient - Social History Smoking Status: Never Smoker Cigarette use (# per day): No Chew tobacco use (# tins/day): No Frequency of alcohol use: None Drug Abuse: None Lives with: Family Family History: Reviewed & Not Pertinent Patient has suicidal ideation: No Patient has homicidal ideation: No - Past Medical History Cardiac Medical History: Reports: Hx DVT, Hx Pulmonary Embolism Musculoskeletal Medical History: Reports Hx Arthritis Past Surgical History: Reports: Hx Appendectomy, Other - Primrose filter - Immunizations Hx Diphtheria, Pertussis, Tetanus Vaccination: Yes Review of Systems - Review of Systems Constitutional: No symptoms reported EENT: No symptoms reported Cardiovascular: See HPI, Chest pain Respiratory: See HPI, Short of breath Gastrointestinal: No symptoms reported Genitourinary: No symptoms reported Female Genitourinary: No symptoms reported Musculoskeletal: No symptoms reported Skin: No symptoms reported Hematologic/Lymphatic: No symptoms reported Neurological/Psychological: No symptoms reported -: Yes All other systems reviewed and negative Physical Exam - Vital signs Vitals: Temp Pulse Resp BP Pulse Ox 98.2 F 95 11 L 123/68 96 05/21/19 17:16 05/21/19 17:16 05/21/19 17:16 05/21/19 17:16 05/21/19 17:16 - Notes Notes: Physical Exam: General: Alert, appears well. HEENT: Normocephalic. Atraumatic. PERRL. Extraocular movements intact. Oropharynx clear. Neck: Supple. Non-tender. Respiratory: No respiratory distress. Clear and equal breath sounds bilaterally. Cardiovascular: Regular rate and rhythm. Abdominal: Morbidly obese. Non-tender. No distension. Normal Bowel Sounds. Back: No gross abnormalities. Extremities: Moves all four extremities. Upper extremities: Normal inspection. Normal ROM. Lower extremities: Normal inspection. No edema. Normal ROM. Neurological: Normal cognition. AAOx4. Normal speech. Psychological: Normal affect. Normal Mood. Skin: Warm. Dry. Normal color. Course - Re-evaluation Re-evalutation: 05/21/19 23:11 Patient is sitting up in bed and no acute distress. Results of CTA of the chest discussed with patient. Informed patient and patient's family the need for admission and IV heparin given patient has bilateral pulmonary emboli. Also given that the patient has failed outpatient Lovenox and has developed pulmonary emboli despite having a Primrose filter, admission is warranted. All questions from the patient and the family were answered by this MD. This MD just contacted the hospitalist for admission; he has not answered a call at this time. This MD put in an order for Dilaudid, Zofran and IV heparin and will continue to attempt to contact the hospitalist for patient admission. - Vital Signs Vital signs: Temp Pulse Resp BP Pulse Ox 99 F 110 H 28 H 123/68 97 05/22/19 01:01 05/21/19 23:55 05/22/19 01:01 05/22/19 01:01 05/22/19 01:01 05/21/19 23:13 Vital signs reviewed by this MD. - Laboratory Result Diagrams: 05/21/19 19:02 05/21/19 19:02 Laboratory results interpreted by me: 05/21/19 05/21/19 05/21/19 19:00 19:02 19:02 RBC 3.11 L Hgb 9.7 L Hct 28.8 L RDW 14.9 H Plt Count 496 H APTT Creatinine 0.39 L Urine Protein 30 H Urine Urobilinogen 4.0 H Ur Leukocyte Esterase TRACE H 05/22/19 00:11 RBC Hgb Hct RDW Plt Count APTT 40.3 H Creatinine Urine Protein Urine Urobilinogen Ur Leukocyte Esterase 05/21/19 23:14 All laboratory results reviewed by this MD. - Diagnostic Test Radiology reviewed: Reports reviewed - EKG Interpretation by Me Additional EKG results interpreted by me: 05/21/19 23:14 EKG performed at 1820 hrs. on 05/21/2019 was interpreted by this MD. Findings: Normal sinus rhythm, rate of 91, normal axis, pes preceding QRS complexes, QRS complexes appear narrow, there are no obvious ST elevation or depression patterns suggestive of acute myocardial ischemia or infarction. Impression normal sinus rhythm with nonspecific ST segments. Discharge - Discharge Clinical Impression: Bilateral pulmonary embolism Condition: Good Disposition: ADMITTED OBSERVATION Admitting Provider: Nickolas (Hospitalist) Unit Admitted: Telemetry I personally performed the services described in the documentation, reviewed and edited the documentation which was dictated to the scribe in my presence, and it accurately records my words and actions.
[2019-05-21 23:48] LABS: APPEARANCE,URINE SLIGHTLY-CLOUDY; BILIRUBIN,URINE NEGATIVE (NEGATIVE); GLUCOSE, URINE NEGATIVE (NEGATIVE); KETONES,URINE NEGATIVE (NEGATIVE); LEUKOCYTE ESTERASE,URINE TRACE (NEGATIVE); NITRITE,URINE NEGATIVE (NEGATIVE); PROTEIN,URINE 30 mg/dL (NEGATIVE)
[2019-05-21 23:50] LABS: COLOR,URINE YELLOW
--- NOTE | 2019-05-21 23:53 | EKG REPORT ---
SEVERITY:- BORDERLINE ECG - SINUS RHYTHM LVH BY VOLTAGE NONSPECIFIC ANTERIOR ST-T CHANGES : Confirmed by: Jerardo Rahman MD 21-May-2019 23:53:15
[2019-05-21] MEDS ORDERED: MAGNESIUM HYDROXIDE SUSP 30 ML UDCUP PO PRN (23:54)
[2019-05-21] MEDS ORDERED: IPRATROPIUM/ALBUTEROL 0.5-2.5 MG/3 ML AMPUL NEB PRN (23:54)
[2019-05-21] MEDS ORDERED: MAG HYDROX/AL HYDROX/SIMETH SUSP 30 ML UDCUP PO PRN (23:54)
[2019-05-22] MEDS ORDERED: HEPARIN SOD (PORCINE) 1,000 UNIT/ML 10 ML VIAL IV PRN (01:57)
[2019-05-22] MEDS: ACETAMINOPHEN 325 MG TABLET PO PRN ×4 (02:07→21:24)
--- NOTE | 2019-05-22 05:31 | PDOC H&P ---
History of Present Illness Admission Date/PCP: 05/22/19 01:16 ZENA HERNANDEZ MD Patient complains of: Left-sided chest pain History of Present Illness: LISA LEWIS is a 64 year old female with a past medical history of morbid obesity, pulmonary emboli and hysterectomy 6 weeks ago for bleeding. She presents with several days of sharp left-sided chest pain exacerbated by deep breathing prompting evaluation in the emergency room where she is found to have tachypnea, tachycardia, splinting, microcytic anemia and bilateral pulmonary emboli. She started on IV heparin and referred to the hospitalist for admission. Patient admits compliance with post hysterectomy subcu Lovenox 40 mg/day. She cannot recall the name of her usual anticoagulant. She denies any leg trauma or swelling Past Medical History Cardiac Medical History: Reports: DVT, Pulmonary Embolism Denies: Coronary Artery Disease, Myocardial Infarction, Hypertension Pulmonary Medical History: Denies: Asthma, Bronchitis, Chronic Obstructive Pulmonary Disease (COPD), Pneumonia Neurological Medical History: Denies: Seizures Musculoskeltal Medical History: Reports: Arthritis Hematology: Denies: Anemia Past Surgical History Past Surgical History: Reports: Appendectomy, Other - Kristopher filter Social History Information Source: Patient, [facility] Records Lives with: Family Smoking Status: Never Smoker Electronic Cigarette use?: No Drugs: None - Advance Directive Resuscitation Status: Full Code Family History Family History: Hypertension Parental Family History Reviewed: Yes Children Family History Reviewed: Yes Sibling(s) Family History Reviewed.: Yes Medication/Allergy Home Medications: Meloxicam [Mobic] 15 mg PO DAILYP 11/19/18 Aspirin [Aspirin 81 mg Chewable Tablet] 1 tab PO DAILY 04/07/19 Allergies/Adverse Reactions: No Known Allergies Allergy (Verified 05/21/19 17:48) Review of Systems Constitutional: ABSENT: chills, fever(s), headache(s), weight gain, weight loss Eyes: ABSENT: visual disturbances Ears: ABSENT: hearing changes Cardiovascular: ABSENT: chest pain, dyspnea on exertion, edema, orthropnea, palpitations Respiratory: ABSENT: cough, hemoptysis Gastrointestinal: ABSENT: abdominal pain, constipation, diarrhea, hematemesis, hematochezia, nausea, vomiting Genitourinary: ABSENT: dysuria, hematuria Musculoskeletal: ABSENT: joint swelling Integumentary: ABSENT: rash, wounds Neurological: ABSENT: abnormal gait, abnormal speech, confusion, dizziness, focal weakness, syncope Psychiatric: ABSENT: anxiety, depression, homidical ideation, suicidal ideation Endocrine: ABSENT: cold intolerance, heat intolerance, polydipsia, polyuria Hematologic/Lymphatic: ABSENT: easy bleeding, easy bruising Physical Exam Vital Signs: Temp Pulse Resp BP Pulse Ox 99.6 F 124 H 17 144/83 H 94 05/22/19 03:15 05/22/19 03:15 05/22/19 03:15 05/22/19 03:15 05/22/19 03:15 Intake & Output 05/20/19 05/21/19 05/22/19 11:59 11:59 11:59 Intake Total 90 Balance 90 Weight 106.5 kg General appearance: PRESENT: cooperative, mild distress, morbidly obese, well- developed, well-nourished Head exam: PRESENT: atraumatic, normocephalic Eye exam: PRESENT: conjunctiva pink, EOMI, PERRLA. ABSENT: scleral icterus Ear exam: PRESENT: normal external ear exam Mouth exam: PRESENT: moist, tongue midline Neck exam: ABSENT: carotid bruit, JVD, lymphadenopathy, thyromegaly Respiratory exam: PRESENT: accessory muscle use, clear to auscultation kya, tachypnea, other - Splinting. ABSENT: rales, rhonchi, wheezes Cardiovascular exam: PRESENT: tachycardia. ABSENT: diastolic murmur, rubs, systolic murmur Pulses: PRESENT: normal dorsalis pedis pul Vascular exam: PRESENT: normal capillary refill GI/Abdominal exam: PRESENT: normal bowel sounds, soft. ABSENT: distended, guarding, mass, organolmegaly, rebound, tenderness Rectal exam: PRESENT: deferred Extremities exam: PRESENT: full ROM. ABSENT: calf tenderness, clubbing, pedal edema Neurological exam: PRESENT: alert, awake, oriented to person, oriented to place, oriented to time, oriented to situation, CN II-XII grossly intact. ABSENT: motor sensory deficit Psychiatric exam: PRESENT: appropriate affect, normal mood. ABSENT: homicidal ideation, suicidal ideation Skin exam: PRESENT: dry, intact, warm. ABSENT: cyanosis, rash Results Laboratory Results: 05/21/19 19:02 05/21/19 19:02 05/21/19 05/21/19 05/21/19 19:00 19:02 19:02 WBC 9.9 RBC 3.11 L Hgb 9.7 L Hct 28.8 L MCV 93 MCH 31.2 MCHC 33.7 RDW 14.9 H Plt Count 496 H Seg Neutrophils % 62.1 Sodium 141.9 Potassium 3.9 Chloride 103 Carbon Dioxide 27 Anion Gap 12 BUN 9 Creatinine 0.39 L Est GFR ( Amer) > 60 Glucose 97 Calcium 9.5 Total Bilirubin 0.8 AST 33 Alkaline Phosphatase 109 Total Protein 7.8 Albumin 3.8 Urine Color YELLOW Urine Appearance SLIGHTLY-CLOUDY Urine pH 5.0 Ur Specific [place] 1.030 Urine Protein 30 H Urine Glucose (UA) NEGATIVE Urine Ketones NEGATIVE Urine Blood NEGATIVE Urine Nitrite NEGATIVE Ur Leukocyte Esterase TRACE H Urine WBC (Auto) 5 Urine RBC (Auto) 0 05/21/19 05/22/19 19:02 00:11 Troponin I < 0.012 < 0.012 Impressions: Chest X-Ray 05/21/19 17:48 IMPRESSION: Chronic interstitial changes with no acute cardiopulmonary finding s. Assessment and Plan - Diagnosis (1) Anemia Is this a current diagnosis for this admission?: Yes Plan: Likely iron deficient, follow-up anemia labs (2) Bilateral pulmonary embolism Is this a current diagnosis for this admission?: Yes Plan: Suboptimal post procedure anticoagulation, continue full dose heparin, telem etry, cardiac enzymes and education - Time Time Spent with patient: 25-34 minutes - Inpatient Certification Medical Necessity: Need Close Monitoring Due to Risk of Patient Decompensation
[2019-05-22 06:18] LABS: HEMATOCRIT 27.9 % (36.0-47.0); HEMOGLOBIN 9.4 g/dL (12.0-15.5); MEAN CORPUSCULAR HGB CONC 33.5 g/dL (32.0-36.0); MEAN CORPUSCULAR VOLUME 93 fl (80-97); PLATELET COUNT 488 10^3/uL (150-450); RED BLOOD COUNT 3.02 10^6/uL (3.72-5.28); WHITE BLOOD COUNT 11.5 10^3/uL (4.0-10.5)
[2019-05-22 06:46] LABS: ABSOLUTE RETICS # 0.068 10^6/uL (0.028-0.122); RETICULOCYTE COUNT (AUTO) 2.31 % (0.66-2.85)
[2019-05-22 06:50] LABS: ANION GAP 10 (5-19); BLOOD UREA NITROGEN 5 mg/dL (7-20); CALCIUM 9.6 mg/dL (8.4-10.2); CARBON DIOXIDE 29 mmol/L (22-30); CHLORIDE 102 mmol/L (98-107); GLUCOSE 122 mg/dL (75-110); POTASSIUM 3.5 mmol/L (3.6-5.0)
[2019-05-22 07:04] LABS: IRON(TIBC) 15.5 ug/dL (37-170)
[2019-05-22] MEDS: IPRATROPIUM/ALBUTEROL 0.5-2.5 MG/3 ML AMPUL NEB SCH ×2 (07:46→19:38)
[2019-05-22] MEDS: DOCUSATE SODIUM 100 MG CAPSULE PO SCH ×2 (10:59→17:45)
[2019-05-22 13:03] LABS: HEMATOCRIT 28.4 % (36.0-47.0); HEMOGLOBIN 9.5 g/dL (12.0-15.5); MEAN CORPUSCULAR HEMOGLOBIN 30.9 pg (27.0-33.4); MEAN CORPUSCULAR HGB CONC 33.5 g/dL (32.0-36.0); MEAN CORPUSCULAR VOLUME 92 fl (80-97); PLATELET COUNT 475 10^3/uL (150-450); RED BLOOD COUNT 3.08 10^6/uL (3.72-5.28); RED CELL DISTRIBUTION WIDTH 15.1 % (11.5-14.0); WHITE BLOOD COUNT 9.7 10^3/uL (4.0-10.5)
[2019-05-22] MEDS: ENOXAPARIN SODIUM INJ 120 MG/0.8 ML DISP.SYRIN SUBCUT SCH ×2 (15:09→21:23)
[2019-05-23] MEDS: IPRATROPIUM/ALBUTEROL 0.5-2.5 MG/3 ML AMPUL NEB SCH (07:39)
[2019-05-23] MEDS: DOCUSATE SODIUM 100 MG CAPSULE PO SCH (09:49)
[2019-05-23] MEDS: ACETAMINOPHEN 325 MG TABLET PO PRN (09:49)
[2019-05-23] MEDS: ENOXAPARIN SODIUM INJ 120 MG/0.8 ML DISP.SYRIN SUBCUT SCH (09:50)
--- NOTE | 2019-05-23 12:23 | PDOC DISCHARGE SUMMARY ---
Impression - Admit/DC Date/PCP Admission Date/Primary Care Provider: 05/22/19 12:30 ZENA HERNANDEZ MD Discharge Date: 05/23/19 - Discharge Diagnosis (1) Anemia due to acute blood loss Is this a current diagnosis for this admission?: Yes (2) Atelectasis Is this a current diagnosis for this admission?: Yes (3) Bilateral pulmonary embolism Is this a current diagnosis for this admission?: Yes - Assessment Summary: Patient presented with shortness of breath and chest wall pain. Upon admission CTA scan was done which revealed moderate bilateral pulmonary embolisms involving segmental branches of the lower lobes and some atelectasis. Patient was subsequently admitted and started on heparin drip initially. PTT came back very high. Heparin was subsequently stopped and therapeutic Lovenox was started after PTT had normalized. Both CT scan and EKG showed no evidence of RV strain/dysfunction pattern. Today patient is feeling much better. Patient will be transitioned to Xarelto 50 mg twice daily for 21 days then 20 mg daily. Patient will need therapy lifelong as this is a second pulmonary embolism and her son who is young also has history of 2 pulmonary embolisms. I have discontinued patient's aspirin 81 mg which patient was taking for primary prophylaxis as patient is now on Xarelto. Patient is being discharged in safe conditions to follow-up with her primary care provider for referral to a audit clerks supervisor. - Additional Information Resuscitation Status: Full Code Discharge Diet: Regular Discharge Activity: Activity As Tolerated Referrals: ZENA HERNANDEZ MD [Primary Care Provider] - Follow up as needed Prescriptions: Rivaroxaban [Xarelto 15 mg Tablet] 15 mg PO BIDACBS 60 Days tablet Home Medications: Meloxicam [Mobic] 15 mg PO DAILYP 11/19/18 Acetaminophen [Tylenol 325 mg Tablet] 650 mg PO Q4HP PRN tablet 05/23/19 Rivaroxaban [Xarelto 15 mg Tablet] 15 mg PO BIDACBS 60 Days tablet 05/23/19 History of Present Illiness History of Present Illness: LISA LEWIS is a 64 year old female with a past medical history of morbid obesity, pulmonary emboli and hysterectomy 6 weeks ago for bleeding. She presents with several days of sharp left-sided chest pain exacerbated by deep breathing prompting evaluation in the emergency room where she is found to have tachypnea, tachycardia, splinting, microcytic anemia and bilateral pulmonary emboli. She started on IV heparin and referred to the hospitalist for admission. Patient admits compliance with post hysterectomy subcu Lovenox 40 mg/day. She cannot recall the name of her usual anticoagulant. She denies any leg trauma or swelling. Physical Exam Vital Signs: Temp Pulse Resp BP Pulse Ox 98.6 F 106 H 22 H 134/66 H 96 05/23/19 07:57 05/23/19 07:57 05/23/19 07:57 05/23/19 07:57 05/23/19 07:57 Intake & Output 05/22/19 05/23/19 05/24/19 06:59 06:59 06:59 Intake Total 410 1062 Balance 410 1062 Weight 106.2 kg 105.8 kg General appearance: PRESENT: no acute distress, cooperative Neck exam: ABSENT: JVD Respiratory exam: PRESENT: clear to auscultation kya Cardiovascular exam: PRESENT: RRR, +S1, +S2. ABSENT: tachycardia GI/Abdominal exam: PRESENT: normal bowel sounds, soft. ABSENT: rigid, tenderness Neurological exam: PRESENT: alert, awake, oriented to person, oriented to place, oriented to time Results Laboratory Results: WBC 9.7 10^3/uL (4.0-10.5) 05/22/19 12:51 RBC 3.08 10^6/uL (3.72-5.28) L 05/22/19 12:51 Hgb 9.5 g/dL (12.0-15.5) L 05/22/19 12:51 Hct 28.4 % (36.0-47.0) L 05/22/19 12:51 MCV 92 fl (80-97) 05/22/19 12:51 MCH 30.9 pg (27.0-33.4) 05/22/19 12:51 MCHC 33.5 g/dL (32.0-36.0) 05/22/19 12:51 RDW 15.1 % (11.5-14.0) H 05/22/19 12:51 Plt Count 475 10^3/uL (150-450) H 05/22/19 12:51 Lymph % (Auto) 21.8 % (13-45) 05/21/19 19:02 Ida % (Auto) 11.5 % (3-13) 05/21/19 19:02 Eos % (Auto) 3.8 % (0-6) 05/21/19 19:02 Baso % (Auto) 0.8 % (0-2) 05/21/19 19:02 Reticulocyte # 0.068 10^6/uL (0.028-0.122) 05/22/19 06:20 Absolute Neuts (auto) 6.1 10^3/uL (1.7-8.2) 05/21/19 19:02 Absolute Lymphs (auto) 2.1 10^3/uL (0.5-4.7) 05/21/19 19:02 Absolute Monos (auto) 1.1 10^3/uL (0.1-1.4) 05/21/19 19:02 Absolute Eos (auto) 0.4 10^3/uL (0.0-0.6) 05/21/19 19:02 Absolute Basos (auto) 0.1 10^3/uL (0.0-0.2) 05/21/19 19:02 Seg Neutrophils % 62.1 % (42-78) 05/21/19 19:02 Retic Count (auto) 2.31 % (0.66-2.85) 05/22/19 06:20 APTT 44.7 SEC (23.5-35.8) H 05/22/19 12:51 Sodium 141.3 mmol/L (137-145) 05/22/19 04:58 Potassium 3.5 mmol/L (3.6-5.0) L 05/22/19 04:58 Chloride 102 mmol/L (98-107) 05/22/19 04:58 Carbon Dioxide 29 mmol/L (22-30) 05/22/19 04:58 Anion Gap 10 (5-19) 05/22/19 04:58 BUN 5 mg/dL (7-20) L 05/22/19 04:58 Creatinine 0.34 mg/dL (0.52-1.25) L 05/22/19 04:58 Est GFR ( Amer) > 60 (>60) 05/22/19 04:58 Est GFR (MDRD) Non-Af > 60 (>60) 05/22/19 04:58 Glucose 122 mg/dL (75-110) H 05/22/19 04:58 Calcium 9.6 mg/dL (8.4-10.2) 05/22/19 04:58 Iron 15.5 ug/dL (37-170) L 05/22/19 06:20 TIBC 279 ug/dL (250-450) 05/22/19 06:20 % Saturation 6 % 05/22/19 06:20 Ferritin 408.00 ng/mL (11.1-264.0) H 05/22/19 06:20 Total Bilirubin 0.8 mg/dL (0.2-1.3) 05/21/19 19:02 Direct Bilirubin 0.2 mg/dL (0.0-0.4) 05/21/19 19:02 Neonat Total Bilirubin Not Reportable 05/21/19 19:02 Neonat Direct Bilirubin Not Reportable 05/21/19 19:02 Neonat Indirect Bili Not Reportable 05/21/19 19:02 AST 33 U/L (14-36) 05/21/19 19:02 ALT 29 U/L (<35) 05/21/19 19:02 Alkaline Phosphatase 109 U/L (38-126) 05/21/19 19:02 Troponin I < 0.012 ng/mL 05/22/19 12:51 Total Protein 7.8 g/dL (6.3-8.2) 05/21/19 19:02 Albumin 3.8 g/dL (3.5-5.0) 05/21/19 19:02 Vitamin B12 882.0 pg/mL (239-931) 05/22/19 06:20 Folate 15.50 ng/mL (>2.76) 05/22/19 06:20 Urine Color YELLOW 05/21/19 19:00 Urine Appearance SLIGHTLY-CLOUDY 05/21/19 19:00 Urine pH 5.0 (5.0-9.0) 05/21/19 19:00 Ur Specific [place] 1.030 05/21/19 19:00 Urine Protein 30 mg/dL (NEGATIVE) H 05/21/19 19:00 Urine Glucose (UA) NEGATIVE mg/dL (NEGATIVE) 05/21/19 19:00 Urine Ketones NEGATIVE mg/dL (NEGATIVE) 05/21/19 19:00 Urine Blood NEGATIVE (NEGATIVE) 05/21/19 19:00 Urine Nitrite NEGATIVE (NEGATIVE) 05/21/19 19:00 Urine Bilirubin NEGATIVE (NEGATIVE) 05/21/19 19:00 Urine Urobilinogen 4.0 mg/dL (<2.0) H 05/21/19 19:00 Ur Leukocyte Esterase TRACE (NEGATIVE) H 05/21/19 19:00 Urine WBC (Auto) 5 /HPF 05/21/19 19:00 Urine RBC (Auto) 0 /HPF 05/21/19 19:00 Urine Bacteria (Auto) TRACE /HPF 05/21/19 19:00 Squamous Epi Cells Auto 9 /HPF 05/21/19 19:00 Urine Mucus (Auto) FEW /LPF 05/21/19 19:00 Urine Ascorbic Acid NEGATIVE (NEGATIVE) 05/21/19 19:00 05/21/19 05/22/19 05/22/19 19:02 00:11 04:58 Troponin I < 0.012 < 0.012 < 0.012 05/22/19 12:51 Troponin I < 0.012 Impressions: Chest X-Ray 05/21/19 17:48 IMPRESSION: Chronic interstitial changes with no acute cardiopulmonary findings. Plan Time Spent: Less than 30 Minutes Stroke Is this a Stroke Patient?: No Acute Heart Failure - Is this a Heart Failure Patient?: No
[2019-05-23 13:18] VITALS: BP 132/67
== END 2019-05-23 14:01 | disposition home or self-care (01) | DRG 176 ==
LOC: ER 16:45 → EH 05-22 01:16 → 4N 05-22 03:13 → OBSVTOIN 05-22 12:30
PROVIDERS: ADMIT Internal Medicine; ATTEND Internal Medicine
DX: I26.99 Other pulmonary embolism without acute cor pulmonale (principal); D62 Acute posthemorrhagic anemia; J98.11 Atelectasis; D50.9 Iron deficiency anemia, unspecified; E66.01 Morbid (severe) obesity due to excess calories; Z90.710 Acquired absence of both cervix and uterus; Z86.711 Personal history of pulmonary embolism; Z79.01 Long term (current) use of anticoagulants; Z86.718 Personal history of other venous thrombosis and embolism
CPT/HCPCS: 36415; 71046; 71275; 80048; 80053; 81001; 82607; 82728; 82746; 83540; 83550; 84484; 85025; 85027; 85045; 85730; 93005; 93010; 94640; 96365; 96366; 96375; 96376; 99284; G0378; J1170; J1644; J1650; J2405; J7620

== ENCOUNTER 2019-06-19 12:28 | Emergency (ER) | payer MEDICARE, MEDICAID ==
--- NOTE | 2019-06-19 13:22 | ER Document Report ---
ED Medical Screen (RME) - General Chief Complaint: Wound Recheck Stated Complaint: POST SURGICAL BLEEDING/RECHECK Time Seen by Provider: 06/19/19 13:16 Primary Care Provider: ZENA HERNANDEZ MD [Primary Care Provider] - Follow up as needed Mode of Arrival: Wheelchair Information source: Patient Notes: 64-year-old female presented to ED for complaint of bleeding from the surgical wound to the abdomen. She had a complete hysterectomy on May 06 with a vertical abdominal incision. She states they did put abhishek and sutures and they removed the abhishek on 16 May. She states she has had a previous hernia repair as well he had to open up the whole abdomen. She states yesterday she noticed some bleeding at the top and the bottom of the incision. There is a constant drip of blood from the top I was unable to examine the bottom and the pit area. She does have tenderness to the area. She is on Xarelto. She states in 2013 she had a blood clot in her lung and was started on Coumadin. And then after she had the surgery in May on 23 May she had a blood clot in her left lung and was changed to Xarelto. She states she did not take her Xarelto this morning due to the bleeding. Postsurgical Rangel may come back and get this is the next. I have greeted and performed a rapid initial assessment of this patient. A comprehensive ED assessment and evaluation of the patient, analysis of test results and completion of medical decision making process will be conducted by an additional ED providers. TRAVEL OUTSIDE OF THE [place] IN LAST 30 DAYS: No - Related Data Allergies/Adverse Reactions: No Known Allergies Allergy (Verified 05/21/19 17:48) Past Medical History - Past Medical History Cardiac Medical History: Reports: Hx DVT, Hx Pulmonary Embolism Denies: Hx Coronary Artery Disease, Hx Heart Attack, Hx Hypertension Pulmonary Medical History: Denies: Hx Asthma, Hx Bronchitis, Hx COPD, Hx Pneumonia Neurological Medical History: Denies: Hx Seizures Renal/ Medical History: Denies: Hx Peritoneal Dialysis Musculoskeltal Medical History: Reports Hx Arthritis Past Surgical History: Reports: Hx Appendectomy, Other - Shellman filter - Immunizations Hx Diphtheria, Pertussis, Tetanus Vaccination: Yes Physical Exam - Vital signs Vitals: Temp Pulse Resp BP Pulse Ox 98.4 F 91 18 141/82 H 97 06/19/19 12:49 12/20/19 12:49 06/19/19 12:49 06/19/19 12:49 06/19/19 12:49 Course - Vital Signs Vital signs: Temp Pulse Resp BP Pulse Ox 98.4 F 91 18 141/82 H 97 06/19/19 12:49 06/19/19 12:49 06/19/19 12:49 06/19/19 12:49 06/19/19 12:49 Doctor's Discharge - Discharge Referrals: ZENA HERNANDEZ MD [Primary Care Provider] - Follow up as needed
--- NOTE | 2019-06-19 14:07 | RADIOLOGY REPORT (SQ) ---
EXAM DESCRIPTION: ACUTE ABDOMEN SERIES COMPLETED DATE/TIME: 06/19/2019 1:55 pm REASON FOR STUDY: abdominal pain, bleeding from surgical wound COMPARISON: CT of the chest from 05/21/2019 NUMBER OF VIEWS: Three views. TECHNIQUE: Frontal chest, supine abdomen and upright/decubitus abdomen radiographic images acquired. LIMITATIONS: None. FINDINGS: CHEST: The left lateral costophrenic sulcus is blunted. There is no consolidation or pneu mothorax. The cardiomediastinal silhouette and pulmonary vasculature are within normal limits. FREE AIR: None. BOWEL GAS PATTERN: Nonobstructive bowel gas pattern. CALCIFICATIONS: No calcifications. HARDWARE: IVC filter and surgical clips that project over the right SI joint. SOFT TISSUES: No abnormality. BONES: No acute findings. OTHER: No other finding. IMPRESSION: 1. 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 2. No acute cardiopulmonary process. TECHNICAL DOCUMENTATION: JOB ID: [id number] [employer]- All Rights Reserved Reading location - IP/workstation name: [email or web address]
[2019-06-19 15:28] LABS: APPEARANCE,URINE SLIGHTLY-CLOUDY; BILIRUBIN,URINE NEGATIVE (NEGATIVE); COLOR,URINE YELLOW; GLUCOSE, URINE NEGATIVE (NEGATIVE); KETONES,URINE NEGATIVE (NEGATIVE); PROTEIN,URINE 30 mg/dL (NEGATIVE); URINE SPECIFIC GRAVITY 1.017
[2019-06-19 15:59] LABS: ABSOLUTE EOSINOPHILS # (AUTO) 0.2 10^3/uL (0.0-0.6); ABSOLUTE LYMPHOCYTES (AUTO) 2.5 10^3/uL (0.5-4.7); ABSOLUTE MONOCYTES (AUTO) 0.8 10^3/uL (0.1-1.4); ABSOLUTE NEUT (AUTO) 4.7 10^3/uL (1.7-8.2); BASOPHILS % (AUTO) 0.4 % (0-2); EOSINOPHILS % (AUTO) 2.8 % (0-6); HEMATOCRIT 28.3 % (36.0-47.0); HEMOGLOBIN 9.3 g/dL (12.0-15.5); LYMPHOCYTES % (AUTO) 30.6 % (13-45); MEAN CORPUSCULAR HEMOGLOBIN 29.5 pg (27.0-33.4); MEAN CORPUSCULAR HGB CONC 32.7 g/dL (32.0-36.0); MEAN CORPUSCULAR VOLUME 90 fl (80-97); MONOCYTES % (AUTO) 9.9 % (3-13); PLATELET COUNT 487 10^3/uL (150-450); RED BLOOD COUNT 3.14 10^6/uL (3.72-5.28); RED CELL DISTRIBUTION WIDTH 15.6 % (11.5-14.0); SEGMENTED NEUTROPHILS % (AUTO) 56.3 % (42-78); TOTAL CELLS COUNTED % (AUTO) 100 %; WHITE BLOOD COUNT 8.3 10^3/uL (4.0-10.5)
[2019-06-19 16:07] LABS: INTERNATIONAL RATION (INR) 1.38; PROTHROMBIN TIME 17.1 SEC (11.4-15.4)
[2019-06-19 16:08] LABS: PARTIAL THROMBOPLASTIN TIME 44.3 SEC (23.5-35.8)
[2019-06-19 16:10] LABS: ALKALINE PHOSPHATASE 81 U/L (38-126); ANION GAP 10 (5-19); ASPARTATE AMINO TRANSFERASE 16 U/L (14-36); BILIRUBIN,DIRECT 0.2 mg/dL (0.0-0.4); BILIRUBIN,TOTAL 0.7 mg/dL (0.2-1.3); BLOOD UREA NITROGEN 8 mg/dL (7-20); CARBON DIOXIDE 30 mmol/L (22-30); CHLORIDE 101 mmol/L (98-107); GLUCOSE 95 mg/dL (75-110); POTASSIUM 3.5 mmol/L (3.6-5.0); TOTAL PROTEIN 8.7 g/dL (6.3-8.2)
--- NOTE | 2019-06-19 16:13 | ER Document Report ---
ED General - General Chief Complaint: Post Surgical Bleeding Stated Complaint: POST SURGICAL BLEEDING/RECHECK Time Seen by Provider: 06/19/19 13:16 Primary Care Provider: ZENA HERNANDEZ MD [Primary Care Provider] - Follow up as needed Mode of Arrival: Wheelchair Information source: Patient TRAVEL OUTSIDE OF THE [place] IN LAST 30 DAYS: No - HPI Onset: This morning Quality of pain: Achy - Patient reports that she stumbled this a.m. and did not fall completely to the ground. However she notes that she then noted pain in her surgical site from a month ago from her hysterectomy. Some draining from the surgical site of some blood, associated with pain in the area. Denies fever chills nausea vomiting. Patient is on anticoagulant Xarelto for pulmonary embolus. And she did not have bleeding since she has been on this Xarelto for the last 2 to 3 weeks until today. - Related Data Allergies/Adverse Reactions: No Known Allergies Allergy (Verified 05/21/19 17:48) Home Medications: Xeralto Past Medical History - General Information source: Patient - Social History Smoking Status: Never Smoker Family History: Hypertension Patient has suicidal ideation: No Patient has homicidal ideation: No - Past Medical History Cardiac Medical History: Reports: Hx DVT, Hx Pulmonary Embolism Denies: Hx Coronary Artery Disease, Hx Heart Attack, Hx Hypertension Pulmonary Medical History: Denies: Hx Asthma, Hx Bronchitis, Hx COPD, Hx Pneumonia Neurological Medical History: Denies: Hx Seizures Renal/ Medical History: Denies: Hx Peritoneal Dialysis Musculoskeletal Medical History: Reports Hx Arthritis Past Surgical History: Reports: Hx Appendectomy, Other - [place] filter - Immunizations Hx Diphtheria, Pertussis, Tetanus Vaccination: Yes Review of Systems - Review of Systems Gastrointestinal: See HPI Physical Exam - Vital signs Vitals: Temp Pulse Resp BP Pulse Ox 98.4 F 91 18 141/82 H 97 06/19/19 12:49 06/19/19 12:49 06/19/19 12:49 06/19/19 12:49 06/19/19 12:49 Interpretation: Normal - Notes Notes: Obese -Hungarian female. In mild distress - General General appearance: Appears well, Alert - HEENT Head: Normocephalic, Atraumatic Eyes: Normal Pupils: PERRL - Respiratory Respiratory status: No respiratory distress Chest status: Nontender Breath sounds: Normal Chest palpation: Normal - Cardiovascular Rhythm: Regular Heart sounds: Normal auscultation Murmur: No - Abdominal Inspection: Normal - Noted sinus track in the area of her midline lower abdominal surgical incision. Draining serosanguineous fluid minimal amount. Patient does feel warm to touch on the skin in this area. CT scan does not show any abscess or any internal process this acute from her surgery. Distension: No distension, Other - Mild distention. Surgical scars noted in lower abdomen midline. There appears to be a granulomatous lesion port was draining some serosanguineous blood. Bowel sounds: Normal Tenderness: Nontender Organomegaly: No organomegaly - Back Back: Normal, Nontender - Extremities General upper extremity: Normal inspection, Nontender, Normal color, Normal ROM, Normal temperature General lower extremity: Normal inspection, Nontender, Normal color, Normal ROM, Normal temperature, Normal weight bearing. No: Shaheen's sign - Neurological Neuro grossly intact: Yes Cognition: Normal Orientation: AAOx4 [place] Coma Scale Eye Opening: Spontaneous Natanael Coma Scale Verbal: Oriented Natanael Coma Scale Motor: Obeys Commands Natanael Coma Scale Total: 15 Speech: Normal Motor strength normal: LUE, RUE, LLE, RLE Sensory: Normal - Psychological Associated symptoms: Normal affect, Normal mood - Skin Skin Temperature: Warm Skin Moisture: Dry Skin Color: Normal Course - Vital Signs Vital signs: Temp Pulse Resp BP Pulse Ox 98.4 F 91 18 141/82 H 97 06/19/19 13:16 06/19/19 13:16 06/19/19 13:16 06/19/19 13:16 06/19/19 13:16 - Laboratory Result Diagrams: 06/19/19 15:20 06/19/19 15:20 Laboratory results interpreted by me: 06/19/19 06/19/19 06/19/19 15:10 15:20 15:20 RBC 3.14 L Hgb 9.3 L Hct 28.3 L RDW 15.6 H Plt Count 487 H PT 17.1 H APTT 44.3 H Potassium Creatinine Total Protein Urine Protein 30 H Urine Urobilinogen 2.0 H 06/19/19 15:20 RBC Hgb Hct RDW Plt Count PT APTT Potassium 3.5 L Creatinine 0.44 L Total Protein 8.7 H Urine Protein Urine Urobilinogen - Diagnostic Test Radiology reviewed: Image reviewed, Reports reviewed - No evidence of any complication of her surgery or any torn tissue. No abscess seen Discharge - Discharge Clinical Impression: Postoperative wound cellulitis Condition: Stable Disposition: HOME, SELF-CARE Additional Instructions: Cellulitis You have an infection of your skin and underlying soft tissues called cellulitis. This is due to bacteria, which can enter through any break in the skin, or even through an irritated hair follicle. Untreated, cellulitis will usually worsen. Antibiotics are required. Usually, warm packs or warm soaks, and elevation of the infected area are recommended. You should start getting better within 24 to 36 hours. Most infections respond quickly to the right medication. Follow-up care is important, however, to check for abscess (boil) formation, unsuspected foreign body, or resistant infection. If you develop fever, chills, or if the area of infection is becoming rapidly more swollen or painful, call the doctor at once. We will begin patient on Augmentin and follow-up with her surgeon. Prescriptions: Amox Tr/Potassium Clavulanate [Augmentin 875-125 Tablet] 1 tab PO BID 10 Days #20 tablet Referrals: ZENA HERNANDEZ MD [Primary Care Provider] - Follow up as needed
--- NOTE | 2019-06-19 19:03 | RADIOLOGY REPORT (SQ) ---
EXAM DESCRIPTION: CT ABD/PELVIS WITH IV ONLY COMPLETED DATE/TIME: 06/19/2019 6:38 pm REASON FOR STUDY: post bleeding from surgical site COMPARISON: 05/21/2019 and 11/19/2018 TECHNIQUE: CT scan of the abdomen and pelvis performed using helical scanning technique with dynamic intravenous contrast injection. No oral contrast. Images reviewed with lung, soft tissue, and bone windows. Reconstructed coronal and sagittal MPR images reviewed. Delayed images for evaluation of the urinary system also acquired. All images stored on PACS. All CT scanners at this facility use dose modulation, iterative reconstruction, and/or weight based d osing when appropriate to reduce radiation dose to as low as reasonably achievable (ALARA). [facility]: Dose Right [facility]: CareDose [facility]: Dose Right [facility]: Teradose 4D [facility]: [employer] CONTRAST TYPE AND DOSE: contrast/concentration: Isovue 350.00 mg/ml; Total Contrast Delivered: 100.0 ml; Total Saline Delivered: 71.0 ml RENAL FUNCTION: BUN 8; creatinine 0.44 RADIATION DOSE: CT Rad equipment meets quality standard of care and radiation dose reduction techniq ues were employed. CTDIvol: 21.1 mGy. DLP: 2056 mGy-cm.. LIMITATIONS: None. FINDINGS: LOWER CHEST: Stable appearance noting left lung base atelectasis versus scarring. LIVER: Normal size. No masses. No dilated ducts. SPLEEN: Normal size. No focal lesions. PANCREAS: No masses. No significant calcifications. No adjacent inflammation or peripancreatic fluid collections. Pancreatic duct not dilated. GALLBLADDER: No identified stones by CT criteria. No inflammatory changes to suggest cholecystitis. ADRENAL GLANDS: No significant masses or asymmetry. RIGHT KIDNEY AND URETER: No solid masses. No significant calcifications. No hydronephrosis or hyd roureter. LEFT KIDNEY AND URETER: No solid masses. No significant calcifications. No hydronephrosis or hydr oureter. AORTA AND VESSELS: No aneurysm. No dissection. Renal arteries, SMA, celiac without stenosis. An infr arenal caval filter is demonstrated. RETROPERITONEUM: No retroperitoneal adenopathy, hemorrhage or masses. BOWEL AND PERITONEAL CAVITY: No masses or inflammatory changes. No free fluid or peritoneal masses. APPENDIX: Surgically absent. PELVIS: No mass. No free fluid. Normal bladder. Interval hysterectomy. ABDOMINAL WALL: Interval surgical changes suggestive of umbilical herniorrhaphy ; no discrete evidenc e of recurrence. The adjacent bowel is unremarkable. Marked subcutaneous fat stranding with an appr oximately 2.7 x 1.7 x 5.7 cm fluid collection demonstrating gas fluid levels. A 3.5 cm oblong homogen eous well-circumscribed mass seen in the right inguinal region is similar to that seen on comparison CT imaging and may represent an enlarged lymph node. BONES: No significant or acute findings. OTHER: No other significant finding. IMPRESSION: Interval surgical changes consistent with umbilical herniorrhaphy and hysterectomy. Mar ked infraumbilical subcutaneous fat stranding with focal fluid collection demonstrating gas fluid lev els suggesting abscess. No evidence of recurrent hernia. TECHNICAL DOCUMENTATION: JOB ID: [id number] Quality ID # [id number]: Final reports with documentation of one or more dose reduction techniques (e.g., Au tomated exposure control, adjustment of the mA and/or kV according to patient size, use of iterative reconstruction technique) 2010 [employer]- All Rights Reserved Reading location - IP/workstation name: [email or web address]
[2019-06-19 19:55] VITALS: BP 137/80
== END 2019-06-19 19:50 | disposition home or self-care (01) ==
LOC: ER 12:28
DX: T81.49XA Infection following a procedure, other surgical site, initial encounter (principal); L03.90 Cellulitis, unspecified; Y83.6 Removal of other organ (partial) (total) as the cause of abnormal reaction of the patient, or of later complication, without mention of misadventure at the time of the procedure; I26.99 Other pulmonary embolism without acute cor pulmonale
CPT/HCPCS: 36415; 74022; 74177; 80053; 81001; 85025; 85610; 85730; 87070; 87077; 87186; 87205; 99284

== ENCOUNTER 2019-06-29 08:26 | Day surgery (SDC) | payer MEDICARE, MEDICAID ==
[~2019-06-29 08:26] MED LIST changes: +CEFAZOLIN SODIUM 1 GM in DEXTROSE 5%-WATER 50 ML IV PRN; +DEXTROSE 5%-1/2 NORMAL SALINE 1,000 ML IV PRN; +DIAZEPAM 5 MG TABLET PO PRN; -LACTATED RINGERS 1000 ML IV PRN; +OXYCODONE-ACETAMINOPHEN 5-325 MG TABLET PO PRN
--- NOTE | 2019-06-29 09:09 | RADIOLOGY REPORT (SQ) ---
EXAM DESCRIPTION: CHEST SINGLE VIEW COMPLETED DATE/TIME: 06/29/2019 8:53 am REASON FOR STUDY: pre op COMPARISON: 05/21/2019. EXAM PARAMETERS: NUMBER OF VIEWS: One view. TECHNIQUE: Single frontal radiographic view of the chest acquired. RADIATION DOSE: NA LIMITATIONS: None. FINDINGS: LUNGS AND PLEURA: No opacities, masses or pneumothorax. No pleural effusion. MEDIASTINUM AND HILAR STRUCTURES: No masses. Contour normal. HEART AND VASCULAR STRUCTURES: Heart normal in size. Normal vasculature. BONES: No acute findings. Degenerative changes in the spine and shoulders. HARDWARE: None in the chest. OTHER: No other significant finding. IMPRESSION: NO ACUTE RADIOGRAPHIC FINDING IN THE CHEST. TECHNICAL DOCUMENTATION: JOB ID: [id number] [employer]- All Rights Reserved Reading location - IP/workstation name: [email or web address]
[2019-06-29 09:24] LABS: HEMATOCRIT 30.7 % (36.0-47.0); MEAN CORPUSCULAR HEMOGLOBIN 29.3 pg (27.0-33.4); MEAN CORPUSCULAR HGB CONC 32.5 g/dL (32.0-36.0); MEAN CORPUSCULAR VOLUME 90 fl (80-97); PLATELET COUNT 412 10^3/uL (150-450); RED CELL DISTRIBUTION WIDTH 16.6 % (11.5-14.0); WHITE BLOOD COUNT 5.2 10^3/uL (4.0-10.5)
[2019-06-29] MEDS ORDERED: OXYCODONE-ACETAMINOPHEN 5-325 MG TABLET ONE (09:30)
[2019-06-29] MEDS ORDERED: DIAZEPAM 5 MG TABLET ONE (09:30)
[2019-06-29 09:44] LABS: ANION GAP 12 (5-19); BLOOD UREA NITROGEN 12 mg/dL (7-20); CALCIUM 9.7 mg/dL (8.4-10.2); CARBON DIOXIDE 27 mmol/L (22-30); CHLORIDE 103 mmol/L (98-107); GLUCOSE 96 mg/dL (75-110); POTASSIUM 3.7 mmol/L (3.6-5.0)
[2019-06-29] MEDS ORDERED: LIDOCAINE 0.5% INJ-PF (5 MG/ML) 50 ML SDV ONE (09:50)
[2019-06-29] MEDS ORDERED: MIDAZOLAM 2 MG/2 ML INJ ONE (09:50)
[2019-06-29] MEDS ORDERED: FENTANYL CITRATE INJ/PF 100 MCG/2 ML AMPUL ONE (09:50)
[2019-06-29] MEDS ORDERED: BACITRACIN INJ 50,000 UNIT VIAL ONE (09:51)
--- NOTE | 2019-06-29 11:22 | Discharge Summary ---
Discharge Summary (SDC) - Discharge Final Diagnosis: Uterine cancer. Date of Surgery: 06/29/19 Discharge Date: 06/29/19 Condition: Fair Treatment or Instructions: Discharge home [after recovery per ASU criteria]. Diet , as tolerated, when fully awake advance as tolerated. Activities within moderation encouraged. Follow up in my office by appointment in about [1 week]. Call for appointment. Leave wounds [covered], [keep clean and dry, until office visit in 1 week]. Hold of on school/work [until evaluation in office]. Meds per med rec. Percocet. May shower [in 48 hrs], [try to keep operated area as dry as possible]. Prescriptions: Oxycodone HCl/Acetaminophen [Percocet 5-325 mg Tablet] 1 tab PO ASDIR PRN #7 tab PRN Reason: Referrals: ZENA HERNANDEZ MD [Primary Care Provider] - Discharge Diet: As Tolerated Respiratory Treatments at Home: Deep Breathing/Coughing Discharge Activity: Activity As Tolerated Report the Following to Your Physician Immediately: Shortness of Breath, Unusual Bleeding
--- NOTE | 2019-06-29 11:26 | Operative Report ---
Operative Report DATE OF SURGERY: 06/29/19 PREOPERATIVE DIAGNOSIS: Uterine cancer. POSTOPERATIVE DIAGNOSIS: Uterine cancer. OPERATION: 1. Ultrasound evaluation of right internal jugular vein. 2. Insertion of Port-A-Cath via real-time access in the right internal jugular vein. 3. Angiogram and interpretation. SURGEON: YARITZA TSE ADULT CROSSING GUARD: None. ANESTHESIA: Moderate Sedation TISSUE REMOVED OR ALTERED: Not applicable. COMPLICATIONS: None. ESTIMATED BLOOD LOSS: 5 mL. INTRAOPERATIVE FINDINGS: Of a satisfactory right internal jugular vein. Satisfactory access. Easy egress of blood and ingress of heparinized solution. Contrast flowing smoothly through the distal soft superior vena cava, right atrium on fluoroscopy. Postprocedure chest x-ray shows hardware in good position, no untoward finding. PROCEDURE: After obtaining informed consent, the patient was taken to the [facility] and positioned supine. The [right] neck and chest were prepared with chlorhexidine and draped out with sterile linen. After the " universal timeout", in which it was verified that the patient continued to receive antibiotic, the procedure commenced. A steriley sheathed ultrasound probe was used to evaluate the [right] internal jugular vein. Local anesthesia was infiltrated adjacent to the probe. Access into the [right] internal jugular vein was obtained using a micropuncture needle, followed by micropuncture wire and then a micropuncture catheter. This was followed by introduction of a 0.035 guidewire the tip of which was placed down into the inferior vena cava . The port sites was marked , locally anesthetized and incision made. Dissection now proceeded to the deep subcutaneous subcutaneous tissues so that a pocket for the port was made. Meticulous hemostasis was secured and the catheter was tunneled between the 2 incisions. Proximally, the catheter was now positioned using a peel-away sheath. Distally the catheter was tailored to an appropriate length and then mated to the port using the contained fixating device. The port was now placed in the pocket and the catheter optimally positioned. The port was accessed with a [place] needle and an angiogram done under digital subtraction. The findings as dictated. With adequate and satisfactory positioning, the lumen of the chamber were irrigated with heparinized solution. The wounds were now closed using interrupted 3-0 PDS to the subcutaneous tissues and a continuous subcuticular suture of 4-0 Monocryl to the skin. These are reinforced with Steri-Strips over benzoin and then dressings applied. Time: 0.8 minute. Dose: 15.26 m Gy Contrast: 5 mls. Isovue 300. Copies of the dictated operative report for Dr. Yaritza Stein MD.
[2019-06-29 13:28] VITALS: BP 138/79
--- NOTE | 2019-06-29 16:36 | RADIOLOGY REPORT (SQ) ---
EXAM DESCRIPTION: PORTACATH INSERTION COMPLETED DATE/TIME: 06/29/2019 11:00 am REASON FOR STUDY: C55 UTERINE CA C55 MALIGNANT NEOPLASM OF UTERUS, PART UNSPECIFIED Z79.899 OTHER [facility] (CURRENT) DRUG THERAPY COMPARISON: None. FLUOROSCOPY TIME: 0.8 minutes. 39 images saved to PACS. TECHNIQUE: Intra-operative images acquired during surgical procedure to evaluate progress. NUMBER OF IMAGES: 39 images. LIMITATIONS: None. FINDINGS: Images of the chest acquired during catheter placement. IMPRESSION: IMAGE(S) OBTAINED DURING PROCEDURE. COMMENT: Quality ID 145: Final reports for procedures using fluoroscopy that document radiation exp osure indices, or exposure time and number of fluorographic images (if radiation exposure indices are not available) Please consult full operative report of the attending physician for description of the procedure. TECHNICAL DOCUMENTATION: JOB ID: [id number] 1931 [employer]- All Rights Reserved Reading location - IP/workstation name: [email or web address]
== END 2019-06-29 13:15 | disposition home or self-care (01) ==
LOC: CCL 08:26
PROVIDERS: ATTEND Surgery
DX: C55 Malignant neoplasm of uterus, part unspecified (principal); Z79.899 Other long term (current) drug therapy; Z86.718 Personal history of other venous thrombosis and embolism; Z79.01 Long term (current) use of anticoagulants
CPT/HCPCS: 36415; 85027; 80048; 36561; 76937; 77001; 71045; C1752; C1788; Q9967; J2250; J3490 ×2; J0690; A9270 ×2; J3010; J7060; J1644

== ENCOUNTER → 2019-08-24 | Outpatient (CLI) | payer MEDICARE, MEDICAID ==
--- NOTE | 2019-08-24 12:24 | RADIOLOGY REPORT (SQ) ---
EXAM DESCRIPTION: CT CHEST WITH COMPLETED DATE/TIME: 08/24/2019 9:52 am REASON FOR STUDY: C55 MALIGNANT NEOPLASM OF UTERUS, PART UNSPECIFIED C55 MALIGNANT NEOPLASM OF UTER US, PART UNSPECIFIED COMPARISON: 05/21/2019 TECHNIQUE: CT scan of the chest performed using helical scanning technique with dynamic intravenous contrast injection. Images reviewed with lung, soft tissue and bone windows. Reconstructed coronal and sagittal MPR and MIP images reviewed. All images stored on PACS. All CT scanners at this facility use dose modulation, iterative reconstruction, and/or weight based d osing when appropriate to reduce radiation dose to as low as reasonably achievable (ALARA). [facility]: Dose Right [facility]: CareDose [facility]: Dose Right [facility]: Teradose 4D [facility]: [employer] CONTRAST TYPE AND DOSE: 100 mL Omnipaque 350- low osmolar. RENAL FUNCTION: BUN 11 creatinine 0.4 RADIATION DOSE: CT Rad equipment meets quality standard of care and radiation dose reduction techniq ues were employed. CTDIvol: 28.6 - 32.1 mGy. DLP: 4360 mGy-cm. . LIMITATIONS: None. FINDINGS: LUNGS AND PLEURA: 8 mm ground-glass nodule in the right upper lobe adjacent to the fissure . This appears relatively 1 dimensional on the sagittal image. Pleural/parenchymal scarring in the left lower lobe. HILAR AND MEDIASTINAL STRUCTURES: No identified masses or abnormal nodes. HEART AND VASCULAR STRUCTURES: No aneurysm or dissection. There is a poorly defined filling defect a t the bifurcation of the main pulmonary artery. HARDWARE: None in the chest. UPPER ABDOMEN: See separate report of the CT of the abdomen. THYROID AND OTHER SOFT TISSUES: No masses. No adenopathy. BONES: No significant finding. OTHER: No other significant finding. IMPRESSION: 1. There is no evidence of metastatic disease in the thorax. 2. There is a poorly defined filling defect at the bifurcation of the main pulmonary artery suggesti ng a saddle embolus. See images 19 through 22 series 2. TECHNICAL DOCUMENTATION: JOB ID: [id number] Quality ID # 436: Final reports with documentation of one or more dose reduction techniques (e.g., Au tomated exposure control, adjustment of the mA and/or kV according to patient size, use of iterative reconstruction technique) 2010 [employer]- All Rights Reserved Reading location - IP/workstation name: [email or web address]
--- NOTE | 2019-08-24 12:36 | RADIOLOGY REPORT (SQ) ---
EXAM DESCRIPTION: CT ABD/PELVIS WITH IV ONLY COMPLETED DATE/TIME: 08/24/2019 9:52 am REASON FOR STUDY: C55 MALIGNANT NEOPLASM OF UTERUS, PART UNSPECIFIED C55 MALIGNANT NEOPLASM OF UTER US, PART UNSPECIFIED COMPARISON: 06/19/2019 TECHNIQUE: CT scan of the abdomen and pelvis performed using helical scanning technique with dynamic intravenous contrast injection. No oral contrast. Images reviewed with lung, soft tissue, and bone windows. Reconstructed coronal and sagittal MPR images reviewed. Delayed images for evaluation of the urinary system also acquired. All images stored on PACS. All CT scanners at this facility use dose modulation, iterative reconstruction, and/or weight based d osing when appropriate to reduce radiation dose to as low as reasonably achievable (ALARA). [facility]: Dose Right [facility]: CareDose [facility]: Dose Right [facility]: Teradose 4D [facility]: [email or web address] CONTRAST TYPE AND DOSE: contrast/concentration: Isovue 350.00 mg/ml; Total Contrast Delivered: 100.0 ml; Total Saline Delivered: 72.0 ml RENAL FUNCTION: BUN 11 creatinine 0.4 RADIATION DOSE: . LIMITATIONS: None. FINDINGS: LOWER CHEST: See separate report of the CT of the chest. LIVER: Normal size. No masses. No dilated ducts. SPLEEN: Normal size. No focal lesions. PANCREAS: No masses. No significant calcifications. No adjacent inflammation or peripancreatic fluid collections. Pancreatic duct not dilated. GALLBLADDER: No identified stones by CT criteria. No inflammatory changes to suggest cholecystitis. ADRENAL GLANDS: No significant masses or asymmetry. RIGHT KIDNEY AND URETER: No solid masses. No significant calcifications. No hydronephrosis or hyd roureter. LEFT KIDNEY AND URETER: No solid masses. No significant calcifications. No hydronephrosis or hydr oureter. AORTA AND VESSELS: No aneurysm. No dissection. Renal arteries, SMA, celiac without stenosis. RETROPERITONEUM: No retroperitoneal adenopathy, hemorrhage or masses. BOWEL AND PERITONEAL CAVITY: Mild diverticulosis with no associated inflammation. APPENDIX: Not identified. PELVIS: No mass. No free fluid. Normal bladder. ABDOMINAL WALL: Small ventral hernia containing unobstructed bowel. 33.7 x 20.5 mm solid mass in the right inguinal canal. BONES: Degenerative joint disease in the right hip. No osseous lesions. OTHER: IVC filter. IMPRESSION: 1. There appears to be an enlarged lymph node in the right inguinal canal. Recommend P ET-CT. 2. Mild diverticulosis coli. 3. Small ventral hernia containing unobstructed bowel. 4. Degenerative joint disease in the right hip. TECHNICAL DOCUMENTATION: JOB ID: [id number] Quality ID # 436: Final reports with documentation of one or more dose reduction techniques (e.g., Au tomated exposure control, adjustment of the mA and/or kV according to patient size, use of iterative reconstruction technique) 2010 [employer]- All Rights Reserved Reading location - IP/workstation name: [email or web address]
== END ==
LOC: RAD 09:09
PROVIDERS: ATTEND Nurse Practitioner Family
DX: C55 Malignant neoplasm of uterus, part unspecified (principal); R91.1 Solitary pulmonary nodule; K43.9 Ventral hernia without obstruction or gangrene; K57.30 Diverticulosis of large intestine without perforation or abscess without bleeding; M16.11 Unilateral primary osteoarthritis, right hip
CPT/HCPCS: 71260; 74177

== ENCOUNTER → 2019-09-08 | Outpatient (CLI) | payer MEDICARE, MEDICAID ==
--- NOTE | 2019-09-08 13:41 | RADIOLOGY REPORT (SQ) ---
EXAM DESCRIPTION: CTA CHEST COMPLETED DATE/TIME: 09/08/2019 11:30 am REASON FOR STUDY: PE (I26.99) I26.99 OTHER PULMONARY EMBOLISM WITHOUT ACUTE COR PULMONALE COMPARISON: 08/24/2019 TECHNIQUE: CT scan of the chest performed using helical scanning technique with dynamic intravenous contrast injection. Images reviewed with lung, soft tissue and bone windows. Reconstructed coronal and sagittal MPR images reviewed. Additional 3 dimensional post-processing performed to develop Maximal Intensity Projection images (SC P). All images stored on PACS. All CT scanners at this facility use dose modulation, iterative reconstruction, and/or weight based d osing when appropriate to reduce radiation dose to as low as reasonably achievable (ALARA). [facility]: Dose Right [facility]: CareDose [facility]: Dose Right [facility]: Teradose 4D [facility]: [employer] CONTRAST TYPE AND DOSE: contrast/concentration: Isovue 350.00 mg/ml; Total Contrast Delivered: 64.0 ml; Total Saline Delivered: 55.0 ml Contrast bolus optimized for the pulmonary arteries. Not diagnostic for the aorta. RENAL FUNCTION: Creatinine 0.4 RADIATION DOSE: CT Rad equipment meets quality standard of care and radiation dose reduction techniq ues were employed. CTDIvol: 19.3 - 21.3 mGy. DLP: 783 mGy-cm. . LIMITATIONS: None. FINDINGS: LUNGS AND PLEURA: No masses, infiltrates, or pneumothorax. No pleural effusions or pleura l calcifications. AORTA AND GREAT VESSELS: No aneurysm. Contrast bolus not optimized for the aorta. HEART: No pericardial effusion. No significant coronary artery calcifications. PULMONARY ARTERIES: No emboli visualized in the main pulmonary arteries or the segmental branches. HILAR AND MEDIASTINAL STRUCTURES: No identified masses or abnormal nodes. HARDWARE: None in the chest. UPPER ABDOMEN: No significant findings. Limited exam. THYROID AND OTHER SOFT TISSUES: No masses. No adenopathy. BONES: No acute or significant finding. 3D MIPS: Confirm above findings. OTHER: No other significant finding. IMPRESSION: NORMAL CTA OF THE CHEST. NO PULMONARY EMBOLI. COMMENT: Quality ID # 436: Final reports with documentation of one or more dose reduction techniques (e.g., Automated exposure control, adjustment of the mA and/or kV according to patient size, use of iterative reconstruction technique) TECHNICAL DOCUMENTATION: JOB ID: [id number] [employer]- All Rights Reserved Reading location - IP/workstation name: [email or web address]
== END ==
LOC: RAD 10:42
PROVIDERS: ATTEND Nurse Practitioner Family
DX: I26.99 Other pulmonary embolism without acute cor pulmonale (principal)
CPT/HCPCS: 71275; 82565

== ENCOUNTER 2020-02-27 09:25 | Emergency (ER) | payer MEDICARE, MEDICAID ==
--- NOTE | 2020-02-27 10:43 | ER Document Report ---
HPI - HPI Time Seen by Provider: 02/27/20 10:33 Pain Level: 4 Context: Patient is a 65-year-old female with a history of ovarian cancer who presents the emergency department with a chief complaint of right ear pain. Patient states that her pain started 2 days ago. Denies any fever, body aches or chills. Patient states that the tip of her Chemo-Port is also hurting, but did not start hurting until she had the ear pain. - ROS Systems Reviewed and Negative: Yes All other systems reviewed and negative - CONSTITUTIONAL Constitutional: DENIES: Fever, Chills - EENT EENT: REPORTS: Ear Pain - REPRODUCTIVE Reproductive: DENIES: : - MUSCULOSKELETAL Musculoskeletal: DENIES: Extremity pain - DERM Skin Color: Normal Skin Problems: None Past Medical History - Social History Smoking Status: Never Smoker Frequency of alcohol use: None Drug Abuse: None Family History: Hypertension - Past Medical History Cardiac Medical History: Reports: Hx DVT, Hx Pulmonary Embolism Denies: Hx Coronary Artery Disease, Hx Heart Attack, Hx Hypertension Pulmonary Medical History: Denies: Hx Asthma, Hx Bronchitis, Hx COPD, Hx Pneumonia Neurological Medical History: Denies: Hx Cerebrovascular Accident, Hx Seizures Renal/ Medical History: Denies: Hx Peritoneal Dialysis Musculoskeletal Medical History: Reports Hx Arthritis Past Surgical History: Reports: Hx Appendectomy, Hx Hysterectomy - D&C and hysterectomy, Other - Kristopher filter - Immunizations Hx Diphtheria, Pertussis, Tetanus Vaccination: Yes Vertical Provider Document - CONSTITUTIONAL Agree With Documented VS: Yes Exam Limitations: No Limitations General Appearance: No Apparent Distress - INFECTION CONTROL TRAVEL OUTSIDE OF THE [place] IN LAST 30 DAYS: No - HEENT HEENT: Atraumatic, Normocephalic, PERRLA, Tympanic Membrane Red - Right. negative: Conjuctival Injection, Pharyngeal Exudate, Pharyngeal Tenderness, Pharyngeal Erythema, Tympanic Membrane Bulging - NECK Neck: Normal Inspection, Supple, Lymphadenopathy-Right. negative: Lymphadenopathy-Left - RESPIRATORY Respiratory: Breath Sounds Normal, No Respiratory Distress - CARDIOVASCULAR Cardiovascular: Regular Rate, Regular Rhythm Pulses: Normal: Radial - MUSCULOSKELETAL/EXTREMETIES Musculoskeletal/Extremeties: FROM - NEURO Level of Consciousness: Awake, Alert, Appropriate Motor/Sensory: No Motor Deficit, No Sensory Deficit - DERM Integumentary: Warm, Dry, No Rash Course - Re-evaluation Re-evalutation: 02/27/20 10:40 Patient's physical exam is consistent with otitis media on the right. No m astoid tenderness noted. Have a low suspicion for mastoiditis. We will start the patient on amoxicillin. Airway is patent. Follow-up precautions were given. Verbal discharge instructions were given to the patient. They verbalized understanding. They are stable for discharge. - Vital Signs Vital signs: Temp Pulse Resp BP Pulse Ox 98.2 F 79 16 116/68 96 02/27/20 09:02/27/20 09:02/27/20 09:02/27/20 09:02/27/20 09:29 Discharge - Discharge Clinical Impression: Ear pain Qualifiers: Laterality: right Qualified Code(s): H92.01 - Otalgia, right ear Otitis media Qualifiers: Otitis media type: suppurative Chronicity: acute Laterality: right Recurrence: non-recurrent Spontaneous tympanic membrane rupture: without spontaneous rupture Qualified Code(s): H66.001 - Acute suppurative otitis media without spontaneous rupture of ear drum, right ear Condition: Stable Disposition: HOME, SELF-CARE Additional Instructions: You were seen today for ear pain and have an acute ear infection. Please take the antibiotic that has been prescribed until it is completed even if you are feeling better before you have finished all the antibiotics. For your pain: Take ibuprofen 600 mg and acetaminophen 1000 mg every 6 hours together as needed for pain. Return if you have worsening of your pain, loss of hearing in the affected ear, worsening facial pain, headaches, pass out, or any other symptoms that are worrisome to you. The pain at the tip of your port site is most likely from your ear pain. Please follow-up with Dr. Stein if you continue to have pain. Prescriptions: Amoxicillin Trihydrate [Amoxil 500 mg Capsule] 500 mg PO BID #20 capsule Referrals: TAZ KAYE FNP-C [Primary Care Provider] - Follow up in 3-5 days YARITZA STEIN MD [ACTIVE STAFF] - Follow up as needed
[2020-02-27 10:56] VITALS: BP 114/72
== END 2020-02-27 10:54 | disposition home or self-care (01) ==
LOC: ER 09:25
DX: H66.001 Acute suppurative otitis media without spontaneous rupture of ear drum, right ear (principal); H92.01 Otalgia, right ear; Z85.43 Personal history of malignant neoplasm of ovary
CPT/HCPCS: 99283